=== PATIENT | male | born 1985 | race Caucasian/White ===

== ENCOUNTER → 2020-04-06 08:14 | Outpatient (BNVA) | payer SELFPAY | PROVIDERS: Visit Provider Internal Medicine | DX: Z02.79 Encounter for issue of other medical certificate (principal) ==

== ENCOUNTER 2021-12-05 17:09 | Emergency (ER) | payer OTHER, SELFPAY ==
--- NOTE | ~2021-12-05 | XR_ITS ---
EXAMINATION: XR ABDOMEN KUB CLINICAL INDICATION: Bloating COMPARISON: None TECHNIQUE: AP view of the abdomen. FINDINGS: Small amount of gas in stool within the right and transverse colon. Small amount of gas in the stomach. Otherwise, paucity of of bowel gas. No gas in the region of the rectum. No dilated air-filled bowel loops identified. No appreciable bowel wall thickening No gross large volume free air on this limited supine exam. No acute osseous injury. XR/XR KUB IMPRESSION: 1. Nonspecific bowel gas pattern. No dilated air-filled bowel loops identified.
[2021-12-05 19:01] VITALS: BP 131/93; PULSE 87; RESP 20; TEMP 36.4; O2SAT 98; BMI 31.4
[2021-12-05 20:26] LABS: Glucose, Whole Blood 139 mg/dL (60-115)
[2021-12-05 21:26] LABS: Hematocrit 45.3 % (42.0-52.0); Hemoglobin 15.7 g/dl (14.0-18.0); Mean Corpuscular HGB Conc 34.7 g/dl (31.0-36.0); Mean Corpuscular Hemoglobin 29.9 pg (27.0-33.0); Mean Corpuscular Volume 86.3 fL (80.0-98.0); Mean Platelet Volume 9.2 fL (9.4-12.4); Platelet Count 298 X10*3/uL (160-400); Red Blood Count 5.25 X10*6/uL (4.60-5.80); Red Cell Distribution Width 12.1 % (11.0-16.0); White Blood Count 8.7 X10*3/uL (4.8-10.8)
[2021-12-05 21:48] LABS: Alanine Aminotransferase 45 U/L (0-40); Albumin Level 4.8 g/dL (3.5-5.0); Alkaline Phosphatase 105 U/L (39-117); Anion Gap 17 (12-20); Aspartate Amino Transferase 22 U/L (5-37); Bilirubin Direct 0.2 mg/dL (0.0-0.5); Bilirubin Total 0.6 mg/dL (0.0-1.0); Blood Urea Nitrogen 12 mg/dL (9-16); Carbon Dioxide 25 mmol/L (22-29); Chloride 100 mmol/L (96-108); Creatinine Clr Calc Pharmacy 118.3; Estimated Glomerular Filt Rate > 60; Glucose Random 153 mg/dL (60-115); Lipase 16 U/L (8-78); Potassium 4.2 mmol/L (3.3-5.1); Sodium 138 mmol/L (135-145); Total Protein 8.1 g/dL (6.5-8.0)
--- NOTE | 2021-12-05 23:56 | ED_ITS ---
HPI - Abdominal Pain General Chief Complaint: Abdominal Pain Stated Complaint: Abdominal pain Time Seen by Provider: 12/05/21 23:07 Source: patient Mode of arrival: ambulatory Limitations: no limitations History of Present Illness HPI narrative: Patient is 36 years old diabetic been having left upper abdominal discomfort for last 4- 5 days no nausea no vomiting feels constipated and bloated seen at urgent care center blood sugar 180 sent him here no fever no chills Related Data Previous Rx's Medication Instructions Recorded metformin 500 mg tablet 500 mg PO BID #60 tabs 04/06/20 blood sugar diagnostic (FreeStyle #100 ea 04/14/20 Lite Strips) blood-glucose meter (FreeStyle #1 ea 04/14/20 Lite Meter kit) lancets 28 gauge (FreeStyle #100 ea 04/14/20 Lancets) ibuprofen 600 mg tablet 600 mg PO TID #30 tabs 06/15/20 Allergies Allergy/AdvReac Type Severity Reaction Status Date / Time No Known Allergies Allergy Verified 12/05/21 19:00 Review of Systems Review of Systems Yes all other systems are reviewed and are negative [facility] Past Medical History Medical History Diabetes mellitus with hyperglycemia, without long-term current use of insulin Obesity (BMI 30.0-34.9) Surgical History No pertinent past surgical history Family History Family History Paternal Grandmother Hx of diabetes mellitus Social History Social History Alcohol intake: current Advance Directives: No Advance Directives Information Provided: No Physical Exam ED Vital Signs: Vital Signs - 24 hr 12/05/21 19:01 Temperature 97.5 F Pulse Rate 87 Respiratory Rate 20 Blood Pressure 131/93 H Pulse Oximetry 98 Oxygen Delivery Method Room Air BMI result Body Mass Index 31.4 Appearance: Alert. Oriented X3. No acute distress. Eyes: No pallor or icterus ENT: Pharynx normal. Oral Mucosa moist Neck: Normal inspection. Neck supple. CVS: Normal heart rate and rhythm. Pulses normal. Respiratory: No respiratory distress. Equal air entry bilateral, no wheezing/rales/rhonchi Abdomen: Soft and mild tenderness left upper quadrant no rebound tenderness no guarding Bowel sounds are present, no mass palpable, no CVA tenderness Skin: Skin warm and dry. Normal skin color. Normal skin turgor. Extremities: No lower extremity edema. No calf tenderness Neuro: Oriented X 3. MDM - Abdominal Pain MDM Narrative Medical decision making narrative: Patient does not seem to be in any distress able to eat well no vomiting no acute tenderness likely constipated labs are stable discharge patient home advised to use stool softener drink plenty of fluids Lab Data Attestation: I reviewed the patient's lab results. Result diagrams: 12/05/21 21:20 12/05/21 21:20 Labs: Lab Results 12/05/21 12/05/21 12/05/21 Range/Units 19:07 21:20 21:20 WBC 8.7 (4.8-10.8) X10*3/uL RBC 5.25 (4.60-5.80) X10*6/uL Hgb 15.7 (14.0-18.0) g/dl Hct 45.3 (42.0-52.0) % MCV 86.3 (80.0-98.0) fL MCH 29.9 (27.0-33.0) pg MCHC 34.7 (31.0-36.0) g/dl RDW 12.1 (11.0-16.0) % Plt Count 298 (160-400) X10*3/uL MPV 9.2 L (9.4-12.4) fL Absolute Nucleated RBC 0.000 (0.0-0.012) X10*3/uL Nucleated RBC % (auto) 0.0 (0.0-0.2) /100WBC Sodium 138 (135-145) mmol/L Potassium 4.2 (3.3-5.1) mmol/L Chloride 100 (96-108) mmol/L Carbon Dioxide 25 (22-29) mmol/L Anion Gap 17 (12-20) BUN 12 (9-16) mg/dL Creatinine 0.92 (0.5-1.4) mg/dL Estim Creat Clear Calc 118.3 Estimated GFR > 60 POC Glucose 139 H (60-115) mg/dL Random Glucose 153 H (60-115) mg/dL Calcium 10.0 (8.4-10.2) mg/dL Total Bilirubin 0.6 (0.0-1.0) mg/dL Direct Bilirubin 0.2 (0.0-0.5) mg/dL AST 22 (5-37) U/L ALT 45 H (0-40) U/L Alkaline Phosphatase 105 (39-117) U/L Total Protein 8.1 H (6.5-8.0) g/dL Albumin 4.8 (3.5-5.0) g/dL Lipase 16 (8-78) U/L Discharge Plan Discharge Clinical Impression: Abdominal pain Patient Disposition: Home, Self-Care Instructions: Abdominal Pain (ED) Additional Instructions: You have nonspecific abdominal pain etiology not very clear Drink plenty of fluids Take stool softener for constipation Report to the ER/PCP if pain gets worse fever/vomiting Prescriptions: No Action (DME) FreeStyle Lite Strips Strip See Rx Instructions .ROUTE .MEDSUPPLY Qty: 100 6RF Rx Instructions: Check fasting blood sugar before meals and keep a record of readings (DME) blood-glucose meter [FreeStyle Lite Meter] Kit See Rx Instructions .ROUTE .MEDSUPPLY Qty: 1 0RF Rx Instructions: Check fasting blood sugar twice a day before meals (DME) lancets [FreeStyle Lancets] 28 gauge misc See Rx Instructions .ROUTE .MEDSUPPLY Qty: 100 6RF Rx Instructions: Check blood sugar as directed twice a day metformin 500 mg tablet 500 mg PO BID Qty: 60 3RF ibuprofen 600 mg tablet 600 mg PO TID Qty: 30 0RF
[2021-12-06] MEDS: Milk of Magnesia 30 ML ORAL.SUSP PO (00:44)
--- NOTE | 2021-12-06 00:45 | PC.NURSE ---
Took over pt at 11:15pm from Raulito Mishra. Reviewed discharge instructions with pt. pt verbalized understanding. Medicated at discharge.
--- NOTE | 2021-12-06 00:47 | PC.NURSE ---
pt denied any sob or chest pain. pt able to tolerate medication well. no sign of distress at this charge. pt did have a steady gait.
== END 2021-12-06 00:56 | disposition home or self-care (01) ==
PROVIDERS: Emergency Provider Internal Medicine; PCP Internal Medicine
DX: R10.13 Epigastric pain (principal); Z79.899 Other long term (current) drug therapy
CPT/HCPCS: 36415; 74018; 80053; 82248; 82947; 83690; 85027; 99282; 99284

== ENCOUNTER 2021-12-17 22:22 | Emergency (ER) | payer OTHER, SELFPAY ==
[2021-12-17 22:47] VITALS: BP 161/83; PULSE 92; RESP 18; TEMP 36.6; O2SAT 96; BMI 33.3
[2021-12-17 23:03] LABS: MANUAL DIFF FLAG NO
[2021-12-17 23:04] LABS: Basophils Absolute Auto 0.1 X10*3/uL (0.0-0.2); Basophils Percent Auto 0.8 % (0-2); Eosinophils Absolute Auto 0.3 X10*3/uL (0.0-0.4); Hematocrit 42.1 % (42.0-52.0); Hemoglobin 14.7 g/dl (14.0-18.0); Imm Gran Abs Auto 0.02 X10*3/uL (0.00-0.03); Imm Gran Pct Auto 0.3 % (0.0-0.4); Lymphocytes Absolute Auto 2.7 X10*3/uL (1.2-4.9); Lymphocytes Percent Auto 34.8 % (20-40); Mean Corpuscular HGB Conc 34.9 g/dl (31.0-36.0); Mean Corpuscular Hemoglobin 29.8 pg (27.0-33.0); Mean Corpuscular Volume 85.4 fL (80.0-98.0); Mean Platelet Volume 9.1 fL (9.4-12.4); Monocytes Absolute Auto 0.6 X10*3/uL (0.1-1.2); Monocytes Percent Auto 8.3 % (2-11); Neutrophils Percent Auto 51.8 % (45-73); Platelet Count 307 X10*3/uL (160-400); Red Blood Count 4.93 X10*6/uL (4.60-5.80); Red Cell Distribution Width 11.9 % (11.0-16.0); White Blood Count 7.8 X10*3/uL (4.8-10.8)
[2021-12-17 23:26] LABS: Alanine Aminotransferase 36 U/L (0-40); Albumin Level 4.7 g/dL (3.5-5.0); Alkaline Phosphatase 91 U/L (39-117); Anion Gap 17 (12-20); Aspartate Amino Transferase 18 U/L (5-37); Bilirubin Total 0.6 mg/dL (0.0-1.0); Blood Urea Nitrogen 12 mg/dL (9-16); Calcium 9.5 mg/dL (8.4-10.2); Carbon Dioxide 24 mmol/L (22-29); Chloride 102 mmol/L (96-108); Creatinine Clr Calc Pharmacy 117.8; Estimated Glomerular Filt Rate > 60; Glucose Random 150 mg/dL (60-115); Lipase 21 U/L (8-78); Potassium 3.9 mmol/L (3.3-5.1); Sodium 139 mmol/L (135-145); Total Protein 7.7 g/dL (6.5-8.0)
[2021-12-18 02:50] VITALS: BP 142/92; PULSE 78; RESP 14; TEMP 36.8; O2SAT 98
--- NOTE | 2021-12-18 02:55 | PC.NURSE ---
Pt declines IV insertion at this time.
--- NOTE | 2021-12-18 04:43 | ED_ITS ---
HPI - Abdominal Pain General Chief Complaint: Abdominal Pain Stated Complaint: upper abd pain Time Seen by Provider: 12/18/21 04:08 Source: patient Mode of arrival: ambulatory Limitations: no limitations History of Present Illness HPI narrative: Patient comes to the emergency room complaining epigastric burning sensation intermittently for over 2 weeks. Patient has been seen in the emergency room for similar complaints. Patient states that he is taking omeprazole and still occasionally has a lot of abdominal discomfort, mostly consistent of burping a lot. At this time, patient states that he has no abdominal pain. Patient denies chest pain or shortness of breath. Patient states also that sometimes he feels that his abdominal wall muscles twitch, especially if he is sitting for a prolonged period of time. Denies nausea vomiting or diarrhea. No fever or chills. No URI or UTI symptoms. Related Data Previous Rx's Medication Instructions Recorded blood sugar diagnostic (FreeStyle #100 ea 04/14/20 Lite Strips) blood-glucose meter (FreeStyle #1 ea 04/14/20 Lite Meter kit) lancets 28 gauge (FreeStyle #100 ea 04/14/20 Lancets) ibuprofen 600 mg tablet 600 mg PO TID #30 tabs 06/15/20 metformin 500 mg tablet 500 mg PO BID #60 tabs 12/07/21 omeprazole 20 mg capsule,delayed 20 mg PO DAILY #14 caps 12/13/21 release sucralfate 1 gram tablet 1 g PO BID #60 tabs 12/18/21 Allergies Allergy/AdvReac Type Severity Reaction Status Date / Time No Known Allergies Allergy Verified 12/13/21 11:33 Review of Systems Review of Systems Constitutional : No Weight loss, No Fever, No Chills, No Night Sweats, No Fatigu e, No Malaise ENT/Mouth : No Hearing loss, No Ear Pain, No Nasal Congestion, No Sinus Pain, No Hoarseness, No sore throat, No Rhinorrhea, No Swallowing Difficulty Eyes: No Eye Pain, No Swelling, No Redness, No Foreign Body, No Discharge, No Vision Changes Cardiovascular : No Chest Pain, No SOB, No Dyspnea on Exertion, No Orthopnea, No Edema, No Palpitations Respiratory : No Cough, No Sputum, No Wheezing, No Smoke Exposure, No Dyspnea Gastrointestinal : No Nausea, No Vomiting, No Diarrhea, No Constipation, complaining of abdominal wall muscle twitching, frequent burping, abdominal burning sensation after eating Genitourinary : no irregular bleeding, No Dysuria, No Urinary Frequency, No Hematuria, No Urinary Incontinence, No Urgency, No Flank Pain, No Urinary Flow Changes, No Hesitancy Musculoskeletal : No joint pain, No Myalgias, No Joint Swelling Skin : No Skin Lesions, No rash Neuro : No Weakness, No Numbness, No Paresthesias, No Loss of Consciousness, No Dizziness, No Headache Psych : No Anxiety/Panic, No Depression, No SI/HI/AH/VH, No Social Issues, Heme/Lymph: No Bruising, No Bleeding,No Lymphadenopathy Endocrine : No Polyuria, No Polydipsia, No Temperature Intolerance PMF Past Medical History Medical History Diabetes mellitus with hyperglycemia, without long-term current use of insulin Obesity (BMI 30.0-34.9) Surgical History No pertinent past surgical history Family History Family History Paternal Grandmother Hx of diabetes mellitus Social History Social History Alcohol intake: current Alcohol intake frequency: holidays/special occasions only Smoked in Last 30 Days: No Use of substances other than those prescribed or required for medical reasons: No Advance Directives: No Advance Directives Information Provided: No Physical Exam ED Vital Signs: Vital Signs - 24 hr 12/17/21 22:47 12/18/21 02:50 Temperature 97.8 F 98.3 F Pulse Rate 92 78 Respiratory Rate 18 14 Blood Pressure 161/83 H 142/92 H Pulse Oximetry 96 98 Oxygen Delivery Method Room Air Room Air BMI result Body Mass Index 33.3 Const Other: Appearance: Alert. Oriented X3. No acute distress. Well appearing Eyes: Pupils equal, round and reactive to light. ENT: Pharynx normal. Neck: Normal inspection. Neck supple. No lymph nodes noted. No crepitus CVS: Normal heart rate and rhythm. Pulses normal. Normal S1 and S2 Respiratory: No respiratory distress. Breath sounds normal. No Wheezing. No rales Abdomen: Soft and nontender. No rigidity. No distention. Skin: Skin warm and dry. Normal skin color. Normal skin turgor. Extremities: No lower extremity edema. No Lacerations. No Rash Neuro: Oriented X 3. No motor deficit. No sensory deficit. Moving all extremities. No slurred speech. CN 2 through 12 grossly intact Psych: calm, cooperative, normal affect Course Course Course Narrative: I discussed with the patient that he likely has peptic ulcer disease. At this time, patient is asymptomatic. Patient will be started on sucralfate. Patient has already an appointment pending with Gastroenterology in 2 weeks. Patient's abdomen is soft, nondistended, nontender, this time imaging is not indicated. Patient's labs do not show any acute pathology I discussed with the patient that if his symptoms do not improve, he will likely need an upper endoscopy MDM - Abdominal Pain Lab Data Result diagrams: 12/17/21 22:55 12/17/21 22:55 Labs: Lab Results 12/17/21 12/17/21 Range/Units 22:55 22:55 WBC 7.8 (4.8-10.8) X10*3/uL RBC 4.93 (4.60-5.80) X10*6/uL Hgb 14.7 (14.0-18.0) g/dl Hct 42.1 (42.0-52.0) % MCV 85.4 (80.0-98.0) fL MCH 29.8 (27.0-33.0) pg MCHC 34.9 (31.0-36.0) g/dl RDW 11.9 (11.0-16.0) % Plt Count 307 (160-400) X10*3/uL MPV 9.1 L (9.4-12.4) fL Immature Gran % (Auto) 0.3 (0.0-0.4) % Neut % (Auto) 51.8 (45-73) % Lymph % (Auto) 34.8 (20-40) % [place] % (Auto) 8.3 (2-11) % Eos % (Auto) 4.0 (0-4) % Baso % (Auto) 0.8 (0-2) % Lymph # (Auto) 2.7 (1.2-4.9) X10*3/uL [place] # (Auto) 0.6 (0.1-1.2) X10*3/uL Eos # (Auto) 0.3 (0.0-0.4) X10*3/uL Baso # (Auto) 0.1 (0.0-0.2) X10*3/uL Abs Immat Gran (auto) 0.02 (0.00-0.03) X10*3/uL Absolute Neuts (auto) 4.0 (2.0-8.3) x10*3/uL Absolute Nucleated RBC 0.000 (0.0-0.012) X10*3/uL Nucleated RBC % (auto) 0.0 (0.0-0.2) /100WBC Sodium 139 (135-145) mmol/L Potassium 3.9 (3.3-5.1) mmol/L Chloride 102 (96-108) mmol/L Carbon Dioxide 24 (22-29) mmol/L Anion Gap 17 (12-20) BUN 12 (9-16) mg/dL Creatinine 0.92 (0.5-1.4) mg/dL Estim Creat Clear Calc 117.8 Estimated GFR > 60 Random Glucose 150 H (60-115) mg/dL Calcium 9.5 (8.4-10.2) mg/dL Total Bilirubin 0.6 (0.0-1.0) mg/dL AST 18 (5-37) U/L ALT 36 (0-40) U/L Alkaline Phosphatase 91 (39-117) U/L Total Protein 7.7 (6.5-8.0) g/dL Albumin 4.7 (3.5-5.0) g/dL Lipase 21 (8-78) U/L Discharge Plan Discharge Clinical Impression: Peptic ulcer disease Patient Disposition: Home, Self-Care Instructions: Peptic Ulcer (ED), Diet for Stomach Ulcers and Gastritis (ED) Additional Instructions: Please follow-up with your primary care physician tomorrow. If you have any worsening or new symptoms, please return to the emergency room or call 911 Prescriptions: New sucralfate 1 gram tablet 1 g PO BID Qty: 60 0RF No Action (DME) FreeStyle Lite Strips Strip See Rx Instructions .ROUTE .MEDSUPPLY Qty: 100 6RF Rx Instructions: Check fasting blood sugar before meals and keep a record of readings (DME) blood-glucose meter [FreeStyle Lite Meter] Kit See Rx Instructions .ROUTE .MEDSUPPLY Qty: 1 0RF Rx Instructions: Check fasting blood sugar twice a day before meals (DME) lancets [FreeStyle Lancets] 28 gauge misc See Rx Instructions .ROUTE .MEDSUPPLY Qty: 100 6RF Rx Instructions: Check blood sugar as directed twice a day ibuprofen 600 mg tablet 600 mg PO TID Qty: 30 0RF metformin 500 mg tablet 500 mg PO BID Qty: 60 0RF omeprazole 20 mg capsule,delayed release(DR/EC) 20 mg PO DAILY Qty: 14 0RF
[2021-12-18] MEDS: Lidocaine HCl Viscous 2 % 15 ML SOLUTION MUCOUS MEM (04:57)
[2021-12-18] MEDS: Magnesium Hydrox/Alum Hydrox 30 ML ORAL.SUSP PO (04:57)
== END 2021-12-18 05:06 | disposition home or self-care (01) ==
PROVIDERS: Emergency Provider Emergency Medicine
DX: K27.9 Peptic ulcer, site unspecified, unspecified as acute or chronic, without hemorrhage or perforation (principal); E11.9 Type 2 diabetes mellitus without complications; E66.9 Obesity, unspecified; Z68.33 Body mass index [BMI] 33.0-33.9, adult; Z79.84 Long term (current) use of oral hypoglycemic drugs
CPT/HCPCS: 36415; 80053; 83690; 85025; 99283; 99284

== ENCOUNTER 2021-12-27 09:15 | Outpatient (REF) | payer OTHER, SELFPAY ==
[2021-12-27 11:29] LABS: MANUAL DIFF FLAG NO
[2021-12-27 11:41] LABS: Basophils Percent Auto 0.6 % (0-2); Eosinophils Absolute Auto 0.4 X10*3/uL (0.0-0.4); Eosinophils Percent Auto 5.3 % (0-4); Hematocrit 44.5 % (42.0-52.0); Hemoglobin 15.1 g/dl (14.0-18.0); Imm Gran Abs Auto 0.02 X10*3/uL (0.00-0.03); Imm Gran Pct Auto 0.3 % (0.0-0.4); Lymphocytes Absolute Auto 2.7 X10*3/uL (1.2-4.9); Lymphocytes Percent Auto 38.5 % (20-40); Mean Corpuscular HGB Conc 33.9 g/dl (31.0-36.0); Mean Corpuscular Hemoglobin 29.7 pg (27.0-33.0); Mean Corpuscular Volume 87.6 fL (80.0-98.0); Mean Platelet Volume 9.8 fL (9.4-12.4); Monocytes Absolute Auto 0.7 X10*3/uL (0.1-1.2); Monocytes Percent Auto 9.9 % (2-11); Neutrophils Absolute Auto 3.2 x10*3/uL (2.0-8.3); Neutrophils Percent Auto 45.4 % (45-73); Platelet Count 315 X10*3/uL (160-400); Red Blood Count 5.08 X10*6/uL (4.60-5.80); Red Cell Distribution Width 12.2 % (11.0-16.0)
[2021-12-27 12:29] LABS: Alanine Aminotransferase 84 U/L (0-40); Albumin Level 4.6 g/dL (3.5-5.0); Alkaline Phosphatase 94 U/L (39-117); Anion Gap 16 (12-20); Aspartate Amino Transferase 31 U/L (5-37); Bilirubin Total 0.6 mg/dL (0.0-1.0); Blood Urea Nitrogen 16 mg/dL (9-16); Calcium 9.8 mg/dL (8.4-10.2); Carbon Dioxide 24 mmol/L (22-29); Chloride 103 mmol/L (96-108); Cholesterol 215 mg/dL; Estimated Glomerular Filt Rate > 60; Glucose Fasting 154 mg/dL (60-99); HDL Cholesterol 45 mg/dL; LDL Cholesterol Calculated 135 mg/dl; Potassium 4.1 mmol/L (3.3-5.1); Sodium 139 mmol/L (135-145); Total Protein 7.7 g/dL (6.5-8.0); Triglycerides 176 mg/dL
[2021-12-27 12:52] LABS: Creatinine Urine 234.43 mg/dL; Microalbum/Creatinine Ratio Ur 4.6 ug/mg cr
== END 2021-12-27 09:16 | disposition home or self-care (01) ==
LOC: HO.HMGCLDS 09:15
PROVIDERS: PCP Internal Medicine; Visit Provider Internal Medicine
DX: R10.11 Right upper quadrant pain (principal); E11.65 Type 2 diabetes mellitus with hyperglycemia; R11.0 Nausea; R63.0 Anorexia
CPT/HCPCS: 36415; 80053; 80061; 82043; 85025; J2250

== ENCOUNTER 2021-12-27 11:00 | Outpatient (REF) | payer OTHER, SELFPAY ==
--- NOTE | ~2021-12-27 | US_ITS ---
EXAMINATION: US ABDOMEN COMPLETE CLINICAL INFORMATION: Right upper quadrant pain. COMPARISON: KUB dated 12/05/2021. TECHNIQUE: Real-time imaging of the abdominal viscera. FINDINGS: PANCREAS: Normal. ABDOMINAL AORTA: The visualized proximal, mid, and distal segments are normal in caliber. Imaging of the mid segment is somewhat limited. INFERIOR VENA CAVA: Visualized portions are normal. LIVER: The liver is normal in size. The liver contour is normal. There is diffuse increased liver parenchymal echogenicity. No focal hepatic lesion. There is no intrahepatic biliary duct dilatation seen. GALLBLADDER: Normal. The gallbladder is physiologically distended without evidence of stones, sludge, polyps, wall thickening or pericholecystic fluid. COMMON BILE DUCT: Normal in caliber measuring 0.4 cm in diameter. RIGHT KIDNEY: Normal. No hydronephrosis. No renal calculi or focal parenchymal lesions. The kidney measures 10.8 cm in maximum dimension. LEFT KIDNEY: Normal. No hydronephrosis. No renal calculi or focal parenchymal lesions. The kidney measures 10.8 cm in maximum dimension. SPLEEN: Normal. The spleen measures 11.1 cm in maximum dimension. FREE FLUID: None. US/US abdomen complete IMPRESSION: Unremarkable examination.
== END 2021-12-27 11:01 | disposition home or self-care (01) ==
LOC: HO.HMGCX 11:00
PROVIDERS: PCP Internal Medicine; Visit Provider Internal Medicine
DX: R10.11 Right upper quadrant pain (principal); E11.65 Type 2 diabetes mellitus with hyperglycemia; R11.0 Nausea; R63.0 Anorexia
CPT/HCPCS: 76700

== ENCOUNTER 2022-01-12 15:40 | Outpatient (REF) | payer OTHER, SELFPAY ==
[2022-01-12 17:06] LABS: Gamma Glutamyl Transpeptidase 51 U/L (11-51)
[2022-01-14 12:48] LABS: Transglutaminase Ab IgG <1.0 U/mL; Transglutaminase IgA <1.0 U/mL
== END 2022-01-12 15:41 | disposition home or self-care (01) ==
LOC: HO.LAB 15:40
PROVIDERS: PCP Internal Medicine; Visit Provider Nurse Practitioner Family
DX: R74.8 Abnormal levels of other serum enzymes (principal); R10.9 Unspecified abdominal pain; K21.9 Gastro-esophageal reflux disease without esophagitis
CPT/HCPCS: 36415; 82977; 86364

== ENCOUNTER 2022-01-13 08:31 | Outpatient (AMB) | payer OTHER, SELFPAY ==
[2022-01-13 08:35] VITALS: BP 102/70; PULSE 95; O2SAT 98; BMI 32.5
--- NOTE | 2022-01-13 08:35 | MHC.PC.OV ---
Vital Signs 01/13/22 08:35 Height 5 ft 6 in Weight 202 lb BMI 32.5 BP 102/70 Blood Pressure Location Lt brachial Position Sitting Pulse 95 Pulse Source Pulse Oximeter Pulse Oximetry (%) 98 Oxygen Delivery Method Room Air Intake Visit Reasons: wants to discuss paperwork Intake Note: Pt is here today to discuss FMLA paperwork Allergies No Known Allergies Allergy (Verified 01/13/22 08:37) Tobacco use date assessed: 01/13/22 [facility] Medical History Diabetes mellitus with hyperglycemia, without long-term current use of insulin Obesity (BMI 30.0-34.9) Right upper quadrant abdominal pain Surgical History No pertinent past surgical history Family History Paternal Grandmother Hx of diabetes mellitus Social History Housing: House Alcohol intake: current Alcohol intake frequency: holidays/special occasions only Patient Tobacco Use Status: Former Tobacco user e-Cigarette/Vaping Use: Never Used Current occupational status: employed Cognitive needs: No Hearing needs: No Vision needs: No Physical exam (Primary Care) Vital Signs: Last Vital Signs Pulse 95 01/13/22 08:35 BP 102/70 01/13/22 08:35 Pulse Ox 98 01/13/22 08:35 Oxygen Delivery Method Room Air 01/13/22 08:35 BMI result Body Mass Index 32.5 Tobacco/Smoking Status: Tobacco use Status Tobacco use date assessed 01/13/22 01/13/22 08:37 Patient Tobacco Use Status Former Tobacco user 01/13/22 08:37 e-Cigarette/Vaping Use Never Used 01/13/22 08:37 Office Procedures Flu Questionnaire Does the patient have a severe egg allergy?: No Does the patient have severe life threatening allergies?: No Does the patient have a fever or illness today?: No Has the patient ever had Guillain-[place] Syndrome?: No Has the patient ever had any past reaction to a flu shot?: No Immunizations flu vacc [id number] 6mos up(PF) Performing Provider: Leora Christopher MD Administered by: Naomy Allison CMA on 01/13/22 09:50 Dose Route Admin Location Lot Number Expiration Date NDC Odd Piece Checker 0.5 mL IM Right Deltoid [id number] 08/12/22 [id number] USDS VIS Given Date VIS Provided VIS Publication Date 01/13/22 Single Vaccine 20 Eligibility Eligibility Date Funding Source Not [facility] Eligible 01/13/22 Private Assessment and Plan Assessment & Plan Orders: Orders Influenza [id number] Immunization Today Z23 - Encounter for immunization Coding Level of Care Code Est Pt Level 4 (43255)
== END 2022-01-13 13:36 | disposition home or self-care (01) ==
LOC: HO.HMGC 08:31
PROVIDERS: PCP Internal Medicine; Visit Provider Internal Medicine
DX: Z00.00 Encounter for general adult medical examination without abnormal findings (principal)
CPT/HCPCS: 99499

== ENCOUNTER 2022-02-22 13:45 | Outpatient (REF) | payer OTHER, SELFPAY ==
[2022-03-02 18:13] LABS: Pancreatic Elastase-1 >500 mcg/g
== END 2022-02-22 13:46 | disposition home or self-care (01) ==
LOC: HO.LNP 13:45
PROVIDERS: Visit Provider Nurse Practitioner Family
DX: R10.9 Unspecified abdominal pain (principal); K21.9 Gastro-esophageal reflux disease without esophagitis
CPT/HCPCS: 82656; 87338

== ENCOUNTER 2022-03-03 08:57 | Outpatient (REF) | payer OTHER, SELFPAY ==
--- NOTE | ~2022-03-03 | FL_ITS ---
EXAMINATION: FL UPPER GI SERIES CLINICAL INFORMATION: K21.9 - Gastro-esophageal reflux disease without esophagitis COMPARISON: Abdominal ultrasound 12/27/2021, KUB 12/05/2021 TECHNIQUE: Upper GI series is performed using fluoroscopic evaluation in addition to multiple fluoroscopic spot views. The patient is imaged both upright and prone and using both thick and thin barium sulfate along with effervescent granules. Barium pill challenge also performed. Fluoroscopy time: 1.7 minutes DAP: 26.024 Gycm2 Fluoroscopic spot images: 19 FINDINGS: There is normal esophageal motility. There is no obstruction, stricture, or ulceration. Barium pill passed from mouth to stomach without significant delay. There is intermittent small sliding hiatal hernia. Gastroesophageal reflux is demonstrated during water siphon test to mid thoracic esophagus. The stomach shows no thickened folds or ulcer crater or outlet obstruction. The duodenal bulb is pliable and without ulcer crater or scarring. The post bulbar duodenum the jejunal mucosal pattern are unremarkable. FL/FL upper GI w air IMPRESSION: -Small intermittent sliding hiatal hernia. -Gastroesophageal reflux during water siphon test to mid thoracic esophagus. -No ulceration. No stricture.
== END 2022-03-03 08:58 | disposition home or self-care (01) ==
LOC: HO.XRAY 08:57
PROVIDERS: PCP Internal Medicine; Visit Provider Nurse Practitioner Family
DX: K21.9 Gastro-esophageal reflux disease without esophagitis (principal)
CPT/HCPCS: 74246

== ENCOUNTER 2022-03-04 11:09 | Outpatient (AMB) | payer OTHER, SELFPAY ==
--- NOTE | 2022-03-04 11:16 | MHC.PC.OV ---
Vital Signs 03/04/22 11:18 Height 5 ft 6 in Weight 203 lb 2 oz BMI 32.8 BP 120/70 Blood Pressure Location Rt brachial Position Sitting Pulse 80 Pulse Source Pulse Oximeter Pulse Oximetry (%) 98 Oxygen Delivery Method Room Air Intake Visit Reasons: paperwork Allergies No Known Allergies Allergy (Verified 04/03/23 08:34) Medication List - Last Reconciled 03/04/22 by Leora Christopher MD blood sugar diagnostic (FreeStyle Lite Strips) Check fasting blood sugar before meals and keep a record of readings blood-glucose meter (FreeStyle Lite Meter kit) Check fasting blood sugar twice a day before meals lancets (FreeStyle Lancets) Check blood sugar as directed twice a day metformin 500 mg PO BID omeprazole 40 mg PO DAILY Tobacco use date assessed: 03/04/22 HPI paperwork HPI Details 38-year-old male with type 2 diabetes mellitus, obesity, history of dyslipidemia, here today requesting to have his disability forms needed for his insurance completed. 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 He had an upper GI series done recently which showed presence of a small sliding hiatal hernia and gastroesophageal reflux disease up to mid thoracic esophagus area. He has been seen by the Gastroenterology, and placed on omeprazole 40 mg daily which has been helping. Expected return to work is on 03/09/2022. He is also here for follow-up on his diabetes mellitus and hyperlipidemia, overdue to get repeat labs done. States that he has been trying to adhere to recommended diet, and has started going to the gym for exercise. He however has not been checking his blood sugar at home. [facility] Medical History Dyslipidemia Erectile dysfunction Sliding hiatal hernia GERD without esophagitis Right upper quadrant abdominal pain Obesity (BMI 30.0-34.9) Diabetes mellitus with hyperglycemia, without long-term current use of insulin Surgical History No pertinent past surgical history Family History Paternal Grandmother Hx of diabetes mellitus Social History Housing: House Alcohol intake: current Alcohol intake frequency: holidays/special occasions only Patient Tobacco Use Status: Former Tobacco user e-Cigarette/Vaping Use: Never Used Current occupational status: employed Cognitive needs: No Hearing needs: No Vision needs: No Questionnaire PHQ-9 Over the last 2 weeks, how often have you been bothered by any of the following problems? 1. Little interest or pleasure in doing things: not at all 2. Feeling down, depressed, or hopeless: not at all 3. Trouble falling or staying asleep, or sleeping too much: not at all 4. Feeling tired or having little energy: not at all 5. Poor appetite or overeating: not at all 6. Feeling bad about yourself - or that you are a failure or have let yourself or your family down: not at all 7. Trouble concentrating on things, such as reading the newspaper or watching television: not at all 8. Moving or speaking so slowly that other people could have noticed. Or the opposite - being so fidgety or restless that you have been moving around a lot more than usual: not at all 9. Thoughts that you would be better off or of hurting yourself in some way: not at all Total score: 0 Depression Screening Interpretation: Negative 25975 - PHQ-9 Billing: Yes Source: Developed by Drs. Michael Weller, Alicia Robledo, Inocencio Aaron and colleagues, with an educational griselda from [employer]. Thrive Questionnaire Declines Thrive assessment: No Date Thrive assessed: 03/04/22 I am a: Patient What is your living situation today?: I have a steady place to live Within the past 12 months, did the food you bought not last and you didn't have the money to get more?: Never true Within the past 12 months, did you worry whether your food would run out before you got money to buy more?: Never true Do you have trouble paying for medicines?: No Do you have trouble getting transportation to medical appointments?: No Do you have trouble paying your heating and electricity bill?: No Do you have trouble taking care of your child, family member or friend?: No Do you have trouble with day-to-day activities such as bathing, preparing meals, shopping, managing finances, etc.?: No Are you currently unemployed and looking for a job?: No Are you interested in more education?: No AUDIT C Alcohol Use Questionnaire (AUDIT-C) 1. How often do you have a drink containing alcohol?: Never 3. How often do you have six or more drinks on one occasion?: Never Total Score: 0 HARRISON-7 AMB Questionnaire HARRISON-7 Date HARRISON - 7 assessed: 03/04/22 Feeling nervous, anxious, or on edge: 0 = Not at all Not being able to stop or control worryin = Not at all Worrying too much about different things: 0 = Not at all Trouble relaxin = Not at all Being so restless that it is hard to sit still: 0 = Not at all Becoming easily annoyed or irritable: 0 = Not at all Feeling afraid as if something awful might happen: 0 = Not at all Total HARRISON-7 score (0-4 normal; 5-9 mild; 10-14 moderate; 15-21 severe): 0 Source: Developed by Drs. Michael Weller, Alicia Robledo, Inocencio Aaron and colleagues, with an educational griselda from [employer]. HARRISON-7 Assessment Billing HARRISON-7 Assessment Tool: HARRISON-7 Assessment 51264 Review of Systems Const Denies fatigue, Denies fever(s), Denies weight gain and Denies weight loss ENT Reports no additional complaints, Denies dysphagia and Denies odynophagia Card Denies chest pain, Denies rapid heart rate, Denies irregular heart rhythm and Denies lightheadedness Resp Reports no additional complaints GI Reports abdominal pain (epigastric an occasional right upper quadrant pain), Denies belching, Denies melena, Denies bloating, Denies change in bowel habits, Denies dysphagia, Denies excessive flatus, Reports heartburn, Reports nausea, Denies odynophagia and Denies vomiting Reports no additional complaints Musc Reports no additional complaints Skin/Breast Denies lesions and Denies rash Neuro Reports no additional complaints Psych Reports no additional complaints Endo Reports no additional complaints and Denies fatigue Lew/Lymph Denies easy bleeding and Denies easy bruising Physical exam (Primary Care) Vital Signs: Last Vital Signs Pulse 80 03/04/22 11:18 BP 120/70 03/04/22 11:18 Pulse Ox 98 03/04/22 11:18 Oxygen Delivery Method Room Air 03/04/22 11:18 BMI result Body Mass Index 32.8 Tobacco/Smoking Status: Tobacco use Status Tobacco use date assessed 03/04/22 03/04/22 11:21 Patient Tobacco Use Status Former Tobacco user 03/04/22 11:21 e-Cigarette/Vaping Use Never Used 03/04/22 11:21 PHQ-9: PHQ-9 Score PHQ-9: Total score 0 03/04/22 12:07 Depression Screening Interpretation: Negative Thrive Assessment: Date of Thrive Assessment Date Thrive assessed 03/04/22 03/04/22 11:23 Const Nutritional Appearance: obese Orientation/consciousness: patient oriented x3 HENMT Mouth: Normal oral and palatal mucosa present, oropharynx normal and moist mucous membranes Neck Other: Supple, no lymphadenopathy, thyroid gland nonpalpable Resp Auscultation: clear to auscultation bilaterally Cardio Other: S1-S2 present regular rate and rhythm GI Inspection: Yes obesity Palpation (GI): Soft to palpation, Tenderness to palpation present (GI) in the epigastrum, no guarding, not rigid, no masses and No Rebound tenderness present General: Yes no CVA tenderness Back/Spine/Pelvis Back: no CVA tenderness and No back tenderness Skin General skin exam: no rashes or lesions noted Neuro General: patient oriented x3, gait normal, tone normal, moves all extremities, Normal light touch and pain sensation, no focal motor deficits, CN's II-XI intact bilaterally and normal sensation to monofilament Extrem General: Yes full ROM, Yes no joint enlargement, Yes no clubbing, cyanosis or edema, Yes no pedal edema and Yes normal gait Immunizations pneumoc 20-antoine conj-dip cr(PF) 0.5 mL IM syringe Performing Provider: Leora Christopher MD Performing Location: [facility] Administered by: Marilee Mercedes RN on 03/04/22 12:07 Dose Route Admin Location Dispensed Lot Number Expiration Date NDC [employer]er 0.5 mL IM Left Deltoid 0.5 mL [id number] 05/15/23 7554-6017-89 [employer] VIS Given Date VIS Provided VIS Publication Date 03/04/22 Single Vaccine 21 Eligibility Eligibility Date Funding Source Not VF Eligible 03/04/22 Private Results Reviewed Results Reviewed: Laboratory Tests 01/12/22 02/22/22 02/22/22 15:52 11:35 11:35 GGT 51 Stool Pancreat Elastase >500 Stool H. pylori Ag SEE NOTE PEC : [id number] JESSE: 12/27/21 STATUS: COMP REQ : [id number] RECD: 12/27/[address]: Leora Christopher MD COMP: 12/27/21 ENTERED: 12/27/[address] [facility] [address]: ORDERED: CMP Fast, Lipid Panel Test Result Flag Reference Sodium 139 135-145 mmol/L Potassium 4.1 3.3-5.1 mmol/L CL 103 96-108 mmol/L CO2 24 22-29 mmol/L Gap 16 12-20 BUN 16 9-16 mg/dL Creat 1.05 0.5-1.4 mg/dL EGFR > 60 NOTE: For -Luxembour[place] individuals, multiply the result by 1.210. Chronic Kidney Disease: Estimated GFR < 60 mL/min/1.73m2 Severe Kidney Disease: Estimated GFR < 15 mL/min/1.73m2 FBS 154 H 60-99 mg/dL A fasting glucose of 126 mg/dl or greater on more than one occasion is considered diagnostic of diabetes. CA 9.8 8.4-10.2 mg/dL Total Bili 0.6 0.0-1.0 mg/dL AST (GOT) 31 # 5-37 U/L ALT (GPT) 84 H 0-40 U/L Protein, Total 7.7 6.5-8.0 g/dL Alb 4.6 3.5-5.0 g/dL Triglyceride 176 mg/dL Desirable Triglyceride: less than 150 mg/dL Borderline High Triglyceride 150-199 mg/dL High Triglyceride: 200-499 mg/dL Very High Triglyceride: greater than or equal to 5OO mg/dL Chol 215 mg/dL Desirable Cholesterol: less than 200 mg/dL Borderline High Cholesterol: 200-239 mg/dL High Cholesterol: greater than 239 mg/dL LDL Calculated 135 mg/dl Desirable LDL: less than 100 mg/dL Near Optimal/Above Optimal LDL: 110-129 mg/dL Borderline High LDL: 130-159 mg/dL High LDL: 160-189 mg/dL Very High LDL: greater than or equal to 190 mg/dL HDL 45 mg/dL Desirable HDL: greater than 40 mg/dL Note: This HDL assay may give artificially low results in patients with liver disease. Alk Phos 94 39-117 U/L Assessment and Plan Assessment & Plan (1) GERD without esophagitis: Code(s): K21.9 - Gastro-esophageal reflux disease without esophagitis Plan: Results of upper GI series reviewed with patient which showed presence of small hiatal hernia and GERD. Discussed with patient changing his diet. Avoiding food that is fried or processed. Disability form for insurance completed and given to patient (2) Sliding hiatal hernia: Code(s): K44.9 - Diaphragmatic hernia without obstruction or gangrene Plan: Discussed changing his diet, avoiding foods that are too acidic, fried or highly processed, avoid bedtime snacking, remain upright for at least 3 hours after eating, and avoid wearing anything to tight around waist (3) Dyslipidemia: Code(s): E78.5 - Hyperlipidemia, unspecified Plan: Reviewed last fasting lipid panel done 2 months ago which showed elevated triglycerides and LDL cholesterol, goal LDL is less than 100 mg/dL. Statin recommended but patient declined starting it at present time due to current GI complaints. Reinforced importance of following a low-cholesterol diet, getting regular exercise. Repeat fasting lipid panel liver enzymes ordered (4) Diabetes mellitus with hyperglycemia, without long-term current use of insulin: Code(s): E11.65 - Type 2 diabetes mellitus with hyperglycemia Plan: Ordered hemoglobin A1c and basic metabolic panel. Currently on metformin 500 mg taken 1 tablet twice a day. Reinforced importance of following diabetic diet and getting regular exercise. Reminded to get his diabetes retinopathy screening done yearly, pneumococcal vaccination given today Orders: Orders Lipid Panel 03/21/22 E66.9 - Obesity, unspecified, E11.65 - Type 2 diabetes mellitus with hyperglycemia Hemoglobin A1c 03/21/22 E66.9 - Obesity, unspecified, E11.65 - Type 2 diabetes mellitus with hyperglycemia Aspartate Amino Transferase 03/21/22 E66.9 - Obesity, unspecified, E11.65 - Type 2 diabetes mellitus with hyperglycemia Basic Metabolic Panel Fasting 03/21/22 E66.9 - Obesity, unspecified, E11.65 - Type 2 diabetes mellitus with hyperglycemia Pneumococcal 20 Immunization 03/04/22 Z23 - Encounter for immunization Alanine Aminotransferase 03/21/22 E66.9 - Obesity, unspecified, E11.65 - Type 2 diabetes mellitus with hyperglycemia Coding Level of Care Code Est Pt Level 4 (12504) Diagnoses GERD without esophagitis K21.9 Sliding hiatal hernia K44.9 Dyslipidemia E78.5 Diabetes mellitus with hyperglycemia, without long-term current use of insulin E11.65 Additional Codes HARRISON-7 Assessment Billing - HARRISON-7 Assessment Tool: HARRISON-7 Assessment 27006 ([id number])
[2022-03-04 11:18] VITALS: BP 120/70; PULSE 80; O2SAT 98; BMI 32.8
== END 2022-03-04 12:20 | disposition home or self-care (01) ==
LOC: HO.HMGC 11:10
PROVIDERS: PCP Internal Medicine; Visit Provider Internal Medicine
DX: K21.9 Gastro-esophageal reflux disease without esophagitis (principal); K44.9 Diaphragmatic hernia without obstruction or gangrene; E78.5 Hyperlipidemia, unspecified; E11.65 Type 2 diabetes mellitus with hyperglycemia
CPT/HCPCS: 99499

== ENCOUNTER → 2022-03-09 13:20 | Outpatient (BNVA) | payer OTHER, SELFPAY | PROVIDERS: PCP Internal Medicine; Referring Provider Internal Medicine; Visit Provider Nurse Practitioner Family | DX: Z13.89 Encounter for screening for other disorder (principal) ==

== ENCOUNTER 2022-04-11 14:37 | Outpatient (AMB) | payer OTHER, SELFPAY ==
--- NOTE | 2022-04-11 14:34 | A.OFFPC_ITS ---
Intake Visit Reasons: FMLA Form/ Iphone [phone] Allergies No Known Allergies Allergy (Verified 09/14/22 14:54) Medication List - Last Reconciled 04/11/22 by Leora Christopher MD blood sugar diagnostic (FreeStyle Lite Strips) Check fasting blood sugar before meals and keep a record of readings blood-glucose meter (FreeStyle Lite Meter kit) Check fasting blood sugar twice a day before meals lancets (FreeStyle Lancets) Check blood sugar as directed twice a day metformin 500 mg PO BID omeprazole 40 mg PO DAILY sucralfate 1 g PO BEDTIME Tobacco use date assessed: 04/11/22 HPI FMLA Form/ Iphone [phone] HPI Details 37-year-old male, here today for nick cisneros in completing an application for his FMLA. He has been having recurrent epigastric pain accompanied by bloating and nausea, he was diagnosed to have a sliding hiatal hernia and GERD on a recent upper endoscopy Patient is currently on omeprazole 40 mg daily, but still gets through breakthrough episodes at times. Has an upcoming appointment with GI again in June 2022. [facility] Medical History Diabetes mellitus with hyperglycemia, without long-term current use of insulin Dyslipidemia Erectile dysfunction GERD without esophagitis Obesity (BMI 30.0-34.9) Right upper quadrant abdominal pain Sliding hiatal hernia Surgical History No pertinent past surgical history Family History Paternal Grandmother Hx of diabetes mellitus Social History Housing: House Alcohol intake: current Alcohol intake frequency: holidays/special occasions only Patient Tobacco Use Status: Former Tobacco user e-Cigarette/Vaping Use: Never Used Current occupational status: employed Cognitive needs: No Hearing needs: No Vision needs: No Questionnaire Thrive Questionnaire Date Thrive assessed: 03/04/22 AUDIT C Alcohol Use Questionnaire (AUDIT-C) 1. How often do you have a drink containing alcohol?: Never 3. How often do you have six or more drinks on one occasion?: Never Total Score: 0 HARRISON-7 AMB Questionnaire HARRISON-7 Date HARRISON - 7 assessed: 03/04/22 Source: Developed by Drs. Michael Weller, Alicia Robledo, Inocencio Aaron and colleagues, with an educational griselda from [employer]. Review of Systems Const Denies fatigue, Denies fever(s), Denies headache(s) and Reports poor appetite ENT Denies change in voice, Denies dizziness, Denies headache(s), Denies hoarseness and Denies nasal congestion Card Reports no additional complaints Resp Reports no additional complaints GI Reports as per HPI, Denies melena, Denies hematochezia, Denies change in bowel habits, Denies change in stool character and Denies nausea Musc Reports no additional complaints Skin/Breast Denies rash Neuro Reports no additional complaints, Denies dizziness and Denies headache(s) Endo Reports no additional complaints and Denies fatigue Physical exam (Primary Care) Tobacco/Smoking Status: Tobacco use Status Tobacco use date assessed 04/11/22 04/11/22 14:35 Patient Tobacco Use Status Former Tobacco user 04/11/22 14:35 e-Cigarette/Vaping Use Never Used 04/11/22 14:35 Thrive Assessment: Date of Thrive Assessment Date Thrive assessed 03/04/22 04/11/22 14:35 Telehealth Telehealth Location of provider rendering services: practice address Location of patient: address on file Patient Identification confirmed using: Name, : Yes Telehealth method: video Patient verbally consented to treatment: Yes Patient verbally consented to billing insurance company: Yes Patient informed of any privacy concerns related to visit: Yes Minutes spent on Phone/Video with Pt.: 15 Assessment and Plan Assessment & Plan (1) Sliding hiatal hernia: Code(s): K44.9 - Diaphragmatic hernia without obstruction or gangrene Plan: Advised to chew his food well, avoid wearing tight clothing, especially around the waist , weight loss strongly recommended, currently on omeprazole 40 mg daily. (2) Encounters for administrative purposes: Code(s): Z02.9 - Encounter for administrative examinations, unspecified Plan: FMLA completed and given to patient, copy of form faxed to his medical record (3) GERD without esophagitis: Code(s): K21.9 - Gastro-esophageal reflux disease without esophagitis Plan: Followed by GI clinic, currently on omeprazole 40 mg daily (4) Diabetes mellitus with hyperglycemia, without long-term current use of insulin: Code(s): E11.65 - Type 2 diabetes mellitus with hyperglycemia Plan: Continued on metformin . stressed importance of following a diabetic diet and getting regular exercise. Medications: Changed From blood sugar diagnostic Check fasting blood sugar before meals and keep a record of readings 100 ea 6RF E11.65 - Type 2 diabetes mellitus with hyperglycemia To blood sugar diagnostic (FreeStyle Lite Strips) Check fasting blood sugartwice a day before meals and keep a record of readings 100 ea 6RF E11.65 - Type 2 diabetes mellitus with hyperglycemia Coding Level of Care Code Tele Est Pt Level 3 (46271) Diagnoses Sliding hiatal hernia K44.9 Encounters for administrative purposes Z02.9 GERD without esophagitis K21.9 Diabetes mellitus with hyperglycemia, without long-term current use of insulin E11.65
== END 2022-04-11 15:28 | disposition home or self-care (01) ==
LOC: HO.HMGC 14:38
PROVIDERS: PCP Internal Medicine; Visit Provider Internal Medicine
DX: K44.9 Diaphragmatic hernia without obstruction or gangrene (principal); K21.9 Gastro-esophageal reflux disease without esophagitis; E11.65 Type 2 diabetes mellitus with hyperglycemia
CPT/HCPCS: 99213

== ENCOUNTER 2022-04-27 12:26 | Outpatient (AMB) | payer OTHER, SELFPAY ==
--- NOTE | 2022-04-27 13:04 | MHC.PC.OV ---
Vital Signs 04/27/22 13:16 Height 5 ft 6 in Weight 202 lb BMI 32.5 BP 102/70 Blood Pressure Location Lt brachial Position Sitting Pulse 77 Pulse Source Pulse Oximeter Pulse Oximetry (%) 97 Oxygen Delivery Method Room Air Intake Visit Reasons: c/o ED Intake Note: Pt is here today c/o ED Allergies No Known Allergies Allergy (Verified 04/03/23 08:34) Medication List - Last Reconciled 04/27/22 by Leora Christopher MD blood sugar diagnostic (FreeStyle Lite Strips) Check fasting blood sugartwice a day before meals and keep a record of readings blood-glucose meter (FreeStyle Lite Meter kit) Check fasting blood sugar twice a day before meals lancets (FreeStyle Lancets) Check blood sugar as directed twice a day metformin 500 mg PO BID omeprazole 40 mg PO DAILY sucralfate 1 g PO BEDTIME Tobacco use date assessed: 04/27/22 HPI c/o ED HPI Details 38-year-old male with diabetes mellitus, poorly controlled, hyperlipidemia, obesity and GERD, here today complaining of having difficulty with maintaining penile erection during sexual intercourse. Patient states that this has been gradually coming on, still has morning erections, denies any urinary symptoms, no abnormal penile discharge. [facility] Medical History Dyslipidemia Erectile dysfunction Sliding hiatal hernia GERD without esophagitis Right upper quadrant abdominal pain Obesity (BMI 30.0-34.9) Diabetes mellitus with hyperglycemia, without long-term current use of insulin Surgical History No pertinent past surgical history Family History Paternal Grandmother Hx of diabetes mellitus Social History Housing: House Alcohol intake: current Alcohol intake frequency: holidays/special occasions only Patient Tobacco Use Status: Former Tobacco user e-Cigarette/Vaping Use: Never Used Current occupational status: employed Cognitive needs: No Hearing needs: No Vision needs: No Questionnaire Thrive Questionnaire Date Thrive assessed: 03/04/22 AUDIT C Alcohol Use Questionnaire (AUDIT-C) 1. How often do you have a drink containing alcohol?: Never Total Score: 0 HARRISON-7 AMB Questionnaire HARRISON-7 Date HARRISON - 7 assessed: 03/04/22 Source: Developed by Drs. Michael Weller, Alicia Robledo, Ioncencio Aaron and colleagues, with an educational griselda from [employer]. Review of Systems Const All systems reviewed & are unremarkable except as noted in HPI and below Card Denies chest pain, Denies rapid heart rate, Denies irregular heart rhythm, Denies lightheadedness and Denies dyspnea Resp Denies chest congestion, Denies cough and Denies dyspnea GI Reports heartburn (Controlled on omeprazole and sucralfate) Reports as per HPI, Denies hematospermia, Denies change in libido, Denies oliguria, Denies difficulty urinating, Denies difficulty with ejaculations, Denies genital lesions, Denies genital pain, Denies dysuria, Denies testicular mass and Denies testicular pain Neuro Reports no additional complaints Psych Denies change in libido Endo Denies change in libido Physical exam (Primary Care) Vital Signs: Last Vital Signs Pulse 77 04/27/22 13:16 BP 102/70 04/27/22 13:16 Pulse Ox 97 04/27/22 13:16 Oxygen Delivery Method Room Air 04/27/22 13:16 BMI result Body Mass Index 32.5 Tobacco/Smoking Status: Tobacco use Status Tobacco use date assessed 04/27/22 04/27/22 13:18 Patient Tobacco Use Status Former Tobacco user 04/27/22 13:06 e-Cigarette/Vaping Use Never Used 04/27/22 13:06 Thrive Assessment: Date of Thrive Assessment Date Thrive assessed 03/04/22 04/27/22 13:06 Const Other: Alert oriented x3, in mild pain distress due to pain in right upper quadrant of abdomen Nutritional Appearance: obese Orientation/consciousness: patient oriented x3 HENMT Mouth: Normal oral and palatal mucosa present, oropharynx normal and moist mucous membranes Neck Other: Supple, no lymphadenopathy, thyroid gland nonpalpable Resp Auscultation: clear to auscultation bilaterally Cardio Other: S1-S2 present regular rate and rhythm GI Inspection: Yes obesity Palpation (GI): Soft to palpation, no guarding, not rigid, no masses and No Rebound tenderness present General: Yes no CVA tenderness Male General Exam: Yes normal external exam Penis: normal penis Scrotum: scrotum normal, testes descended bilaterally, no inguinal hernias and no masses Back/Spine/Pelvis Back: no CVA tenderness and No back tenderness Skin General skin exam: no rashes or lesions noted Neuro General: patient oriented x3, gait normal, tone normal, moves all extremities, Normal light touch and pain sensation, no focal motor deficits, CN's II-XI intact bilaterally and normal sensation to monofilament Extrem General: Yes full ROM, Yes no joint enlargement, Yes no clubbing, cyanosis or edema, Yes no pedal edema and Yes normal gait Assessment and Plan Assessment & Plan (1) Erectile dysfunction: Code(s): N52.9 - Male erectile dysfunction, unspecified Qualifiers: Erectile dysfunction type: unspecified Qualified Code(s): N52.9 - Male erectile dysfunction, unspecified Plan: Likely due to uncontrolled diabetes mellitus, will check testosterone level, advised to get fasting labs done already ordered on last visit. (2) Diabetes mellitus with hyperglycemia, without long-term current use of insulin: Code(s): E11.65 - Type 2 diabetes mellitus with hyperglycemia Qualifiers: Diabetes mellitus type: type 2 Qualified Code(s): E11.65 - Type 2 diabetes mellitus with hyperglycemia Plan: get fasting labs done , already ordered on previous visit Orders: Orders Testosterone, Free/Total 04/27/22 N52.9 - Male erectile dysfunction, unspecified Coding Level of Care Code Est Pt Level 3 (81330) Diagnoses Erectile dysfunction, unspecified erectile dysfunction type N52.9 Erectile dysfunction type: unspecified Type 2 diabetes mellitus with hyperglycemia, without long-term current use of insulin E11.65 Diabetes mellitus type: type 2
[2022-04-27 13:16] VITALS: BP 102/70; PULSE 77; O2SAT 97; BMI 32.5
== END 2022-04-27 14:07 | disposition home or self-care (01) ==
LOC: HO.HMGC 12:26
PROVIDERS: PCP Internal Medicine; Visit Provider Internal Medicine
DX: N52.9 Male erectile dysfunction, unspecified (principal); E11.65 Type 2 diabetes mellitus with hyperglycemia
CPT/HCPCS: 99499

== ENCOUNTER → 2022-07-04 10:03 | Outpatient (BNVA) | payer OTHER, SELFPAY | PROVIDERS: PCP Internal Medicine; Visit Provider Nurse Practitioner Family ==

== ENCOUNTER 2022-07-18 12:09 | Outpatient (REF) | payer OTHER, SELFPAY ==
[2022-07-18 14:30] LABS: Estimated Average Glucose 174 mg/dL; Hemoglobin A1c % 7.7 %
[2022-07-18 14:35] LABS: Creatinine Urine 343.01 mg/dL; Microalbum/Creatinine Ratio Ur 4.6 ug/mg cr
[2022-07-18 14:39] LABS: Alanine Aminotransferase 41 U/L (0-40); Albumin Level 4.3 g/dL (3.5-5.0); Alkaline Phosphatase 101 U/L (39-117); Anion Gap 12 (12-20); Aspartate Amino Transferase 17 U/L (5-37); Bilirubin Direct 0.2 mg/dL (0.0-0.5); Bilirubin Total 0.6 mg/dL (0.0-1.0); Blood Urea Nitrogen 7 mg/dL (9-16); Calcium 9.4 mg/dL (8.4-10.2); Carbon Dioxide 27 mmol/L (22-29); Chloride 105 mmol/L (96-108); Cholesterol 208 mg/dL; Estimated Glomerular Filt Rate > 60; Glucose Fasting 169 mg/dL (60-99); HDL Cholesterol 44 mg/dL; LDL Cholesterol Calculated 132 mg/dl; Sodium 140 mmol/L (135-145); Total Protein 7.2 g/dL (6.5-8.0); Triglycerides 160 mg/dL
[2022-07-23 12:29] LABS: Testosterone, Free 55.1 pg/mL (35.0-155.0); Testosterone, Total 303 ng/dL (250-1100)
== END 2022-07-18 12:10 | disposition home or self-care (01) ==
LOC: HO.HMGCLDS 12:09
PROVIDERS: Absent Provider Nurse Practitioner Family; PCP Internal Medicine; Visit Provider Internal Medicine
DX: E11.65 Type 2 diabetes mellitus with hyperglycemia (principal); E66.9 Obesity, unspecified; N52.9 Male erectile dysfunction, unspecified; R10.9 Unspecified abdominal pain
CPT/HCPCS: 36415; 80048; 80061; 80076; 82043; 83036; 84402; 84403

== ENCOUNTER 2022-07-26 12:01 | Outpatient (AMB) | payer OTHER, SELFPAY ==
--- NOTE | 2022-07-26 12:32 | A.OFFPC_ITS ---
Vital Signs 07/26/22 12:37 Height 5 ft 6 in Weight 201 lb BMI 32.4 BP 110/82 Blood Pressure Location Rt brachial Position Sitting Pulse 69 Pulse Source Pulse Oximeter Pulse Oximetry (%) 98 Oxygen Delivery Method Room Air Intake Visit Reasons: 3 month follow u DM, Lipids, ED Intake Note: Pt is here today for his 3 mo. f/u DM, lipids and ED Allergies No Known Allergies Allergy (Verified 04/03/23 08:34) Tobacco use date assessed: 07/26/22 HPI 3 month follow u DM, Lipids, ED HPI Details 38-year-old male with hyperlipidemia, di abetes mellitus and history of erectile dysfunction, here today for his follow-up. He has been feeling well, blebs take his medications, tries to get some form of exercise on daily basis. Recent labs showed improvement in his blood sugar control with hemoglobin A1c now down to 7.7%. Fasting lipids showed elevated LDL cholesterol. [facility] Medical History Dyslipidemia Erectile dysfunction Sliding hiatal hernia GERD without esophagitis Right upper quadrant abdominal pain Obesity (BMI 30.0-34.9) Diabetes mellitus with hyperglycemia, without long-term current use of insulin Surgical History No pertinent past surgical history Family History Paternal Grandmother Hx of diabetes mellitus Social History Housing: House Alcohol intake: current Alcohol intake frequency: holidays/special occasions only Patient Tobacco Use Status: Former Tobacco user e-Cigarette/Vaping Use: Never Used Current occupational status: employed Cognitive needs: No Hearing needs: No Vision needs: No Questionnaire PHQ-9 Over the last 2 weeks, how often have you been bothered by any of the following problems? Depression Screening Interpretation: Negative Source: Developed by Drs. Michael Weller, Alicia Robledo, Inocencio Aaron and colleagues, with an educational griselda from [employer]. Thrive Questionnaire Date Thrive assessed: 07/15/22 AUDIT C Alcohol Use Questionnaire (AUDIT-C) 1. How often do you have a drink containing alcohol?: Never Total Score: 0 HARRISON-7 AMB Questionnaire HARRISON-7 Date HARRISON - 7 assessed: 07/15/22 Source: Developed by Drs. Michael Weller, Alicia Robledo, Inocencio Aaron and colleagues, with an educational griselda from [employer]. Review of Systems Const Denies chills, Denies fatigue, Denies fever(s) and Denies headache(s) ENT Denies change in voice, Denies dizziness, Denies headache(s), Denies hoarseness and Denies nasal congestion Card Reports no additional complaints Resp Reports no additional complaints GI Reports as per HPI, Reports belching, Denies melena, Reports bloating, Denies hematochezia and Denies change in bowel habits Reports no additional complaints Musc Reports no additional complaints Skin/Breast Denies rash Neuro Reports no additional complaints, Denies dizziness and Denies headache(s) Endo Reports no additional complaints and Denies fatigue Physical exam (Primary Care) Vital Signs: Last Vital Signs Pulse 69 07/26/22 12:37 BP 110/82 07/26/22 12:37 Pulse Ox 98 07/26/22 12:37 Oxygen Delivery Method Room Air 07/26/22 12:37 BMI result Body Mass Index 32.4 Tobacco/Smoking Status: Tobacco use Status Tobacco use date assessed 07/26/22 07/26/22 12:40 Patient Tobacco Use Status Former Tobacco user 07/26/22 12:34 e-Cigarette/Vaping Use Never Used 07/26/22 12:34 Depression Screening Interpretation: Negative Thrive Assessment: Date of Thrive Assessment Date Thrive assessed 07/15/22 07/26/22 12:34 Const Nutritional Appearance: obese Orientation/consciousness: patient oriented x3 HENMT Mouth: Normal oral and palatal mucosa present, oropharynx normal and moist mucous membranes Neck Other: Supple, no lymphadenopathy, thyroid gland nonpalpable Resp Auscultation: clear to auscultation bilaterally Cardio Other: S1-S2 present regular rate and rhythm GI Inspection: Yes obesity Palpation (GI): Soft to palpation, nontender, no guarding, not rigid, no masses and No Rebound tenderness present Neuro General: patient oriented x3, gait normal, tone normal, moves all extremities, Normal light touch and pain sensation, no focal motor deficits, CN's II-XI intact bilaterally and normal sensation to monofilament Extrem General: Yes full ROM, Yes no joint enlargement, Yes no clubbing, cyanosis or edema, Yes no pedal edema and Yes normal gait Results Reviewed Results Reviewed: RUN: 07/26/22 1250 PAGE 1 [facility] [address] [place] [id number] Rehab Director Occupational Therapist: Willis Olmedo M.D. Specimen Inquiry Name: HayleeSedrick Sudeep Age/Sex: 37/M : 1985 Unit#: [id number] Attend Dr: Leora Christopher MD Re07/18/22 Status: DEP REF Location: [facility] Disch: SPEC : [id number] JESSE: 07/18/22 STATUS: COMP REQ : [id number] RECD: 07/18/[address]: Leora Christopher MD COMP: 07/18/22 ENTERED: 07/18/22-[address]: Hilary Chandler [facility]- ORDERED: Liver Panel, Met Prof Fast, Lipid Panel Test Result Flag Reference Site Sodium 140 135-145 mmol/L Potassium 4.0 3.3-5.1 mmol/L CL 105 96-108 mmol/L CO2 27 22-29 mmol/L Gap 12 12-20 BUN 7 L 9-16 mg/dL Creat 0.86 0.5-1.4 mg/dL EGFR > 60 NOTE: For -Congolese individuals, multiply the result by 1.210. Chronic Kidney Disease: Estimated GFR < 60 mL/min/1.73m2 Severe Kidney Disease: Estimated GFR < 15 mL/min/1.73m2 FBS 169 H 60-99 mg/dL A fasting glucose of 126 mg/dl or greater on more than one occasion is considered diagnostic of diabetes. CA 9.4 8.4-10.2 mg/dL Total Bili 0.6 0.0-1.0 mg/dL Direct Bili 0.2 0.0-0.5 mg/dL AST (GOT) 17 5-37 U/L ALT (GPT) 41 H 0-40 U/L Protein, Total 7.2 6.5-8.0 g/dL Alb 4.3 3.5-5.0 g/dL Triglyceride 160 mg/dL Desirable Triglyceride: less than 150 mg/dL Borderline High Triglyceride 150-199 mg/dL High Triglyceride: 200-499 mg/dL Very High Triglyceride: greater than or equal to 5OO mg/dL Chol 208 mg/dL Desirable Cholesterol: less than 200 mg/dL Borderline High Cholesterol: 200-239 mg/dL High Cholesterol: greater than 239 mg/dL LDL Calculated 132 mg/dl Desirable LDL: less than 100 mg/dL Near Optimal/Above Optimal LDL: 110-129 mg/dL Borderline High LDL: 130-159 mg/dL High LDL: 160-189 mg/dL Very High LDL: greater than or equal to 190 mg/dL HDL 44 mg/dL Desirable HDL: greater than 40 mg/dL Note: This HDL assay may give artificially low results in patients with liver disease. Alk Phos 101 39-117 U/L A Laboratory Tests 07/18/22 07/18/22 12:25 12:25 Estimat Average Glucose 174 Hemoglobin A1c % 7.7 Urine Creatinine 343.01 Urine Microalbumin 16.0 Microalb/Creat Ratio 4.6 Assessment and Plan Assessment & Plan (1) Diabetes mellitus with hyperglycemia, without long-term current use of insulin: Code(s): E11.65 - Type 2 diabetes mellitus with hyperglycemia Plan: Hemoglobin A1c is better at 7.7 but not at goal of less than 6.5. Will increase metformin dose to 1000 mg in the morning with breakfast and 500 mg at night with supper. Continue checking blood sugar twice a day, and keep a log of the readings. Reinforced diabetic diet and regular exercise with patient. Counseled regarding importance of yearly diabetes retinopathy screening. Patient advised to inspect feet daily, for any signs of injury, callus or infection. Compliance with diet and regular exercise again stressed. Blood pressure goal is less than 130/80, goal LDL is less than 100 and goal hemoglobin A1c is less than 7% follow-up appointment made in-3--months, after fasting labs done. (2) Obesity (BMI 30.0-34.9): Code(s): E66.9 - Obesity, unspecified Plan: Discussed need to increase activity and wt reduction. Recommended focusing on improving your health instead of dieting. : Eat Mediterranean diet, limit foods high in fat, sugar, and calories, eat slowly, pay attention to portion sizes, plan your meals ahead of time, start regular physical activity 150 minutes of moderate intensity exercise or 90 minutes/week of vigorous exercise and increase water intake. (3) Dyslipidemia: Code(s): E78.5 - Hyperlipidemia, unspecified Plan: Fasting lipids reviewed with LDL cholesterol above 100 mg/dL. Will start on rosuvastatin 5 mg 1 tablet every other day. Stressed adherence to low- cholesterol diet and regular exercise, at least 30 minutes 3 to 4 times a week. Advised patient to make healthy food choices, eat more fruits, vegetables, whole grains, wild caught fish and low-fat dairy. Limit amount of meat and fried or fatty food products, as well as processed foods and fast foods. Follow-up scheduled with repeat fasting lipid panel in 3 months. Orders: Orders Hemoglobin A1c 3 Months E11.65 - Type 2 diabetes mellitus with hyperglycemia, E66.9 - Obesity, unspecified, E78.5 - Hyperlipidemia, unspecified Alanine Aminotransferase 3 Months E11.65 - Type 2 diabetes mellitus with hyperglycemia, E66.9 - Obesity, unspecified, E78.5 - Hyperlipidemia, unspecified Lipid Panel 3 Months E11.65 - Type 2 diabetes mellitus with hyperglycemia, E66.9 - Obesity, unspecified, E78.5 - Hyperlipidemia, unspecified Aspartate Amino Transferase 3 Months E11.65 - Type 2 diabetes mellitus with hyperglycemia, E66.9 - Obesity, unspecified, E78.5 - Hyperlipidemia, unspecified Basic Metabolic Panel Fasting 3 Months E11.65 - Type 2 diabetes mellitus with hyperglycemia, E66.9 - Obesity, unspecified, E78.5 - Hyperlipidemia, unspecified Medications: New rosuvastatin 5 mg PO Q2D 45 tabs 2RF 90 days E78.5 - Hyperlipidemia, unspecified Changed From metformin 500 mg PO BID 180 tabs 1RF E11.65 - Type 2 diabetes mellitus with hyperglycemia To metformin Take a 1000 mg in the morning with breakfast and 500 mg at night with supper 270 tabs 1RF E11.65 - Type 2 diabetes mellitus with hyperglycemia Coding Level of Care Code Est Pt Level 4 (41255) Diagnoses Diabetes mellitus with hyperglycemia, without long-term current use of insulin E11.65 Obesity (BMI 30.0-34.9) E66.9 Dyslipidemia E78.5
[2022-07-26 12:37] VITALS: BP 110/82; PULSE 69; O2SAT 98; BMI 32.4
== END 2022-07-26 13:23 | disposition home or self-care (01) ==
PROVIDERS: Visit Provider Internal Medicine
DX: E11.65 Type 2 diabetes mellitus with hyperglycemia (principal); E66.9 Obesity, unspecified; E78.5 Hyperlipidemia, unspecified; Z68.32 Body mass index [BMI] 32.0-32.9, adult
CPT/HCPCS: 99499

== ENCOUNTER 2022-09-14 14:20 | Outpatient (AMB) | payer OTHER, SELFPAY ==
--- NOTE | 2022-09-14 14:11 | A.OFFPC_ITS ---
Intake Visit Reasons: Gastro Referral-Stomach Pains Allergies No Known Allergies Allergy (Verified 09/14/22 14:54) Medication List - Last Reconciled 09/14/22 by Leora Christopher MD blood sugar diagnostic (FreeStyle Lite Strips) Check fasting blood sugartwice a day before meals and keep a record of readings blood-glucose meter (FreeStyle Lite Meter kit) Check fasting blood sugar twice a day before meals lancets (FreeStyle Lancets) Check blood sugar as directed twice a day metformin Take a 1000 mg in the morning with breakfast and 500 mg at night with supper omeprazole 40 mg PO DAILY rosuvastatin 5 mg PO Q2D 90 days Tobacco use date assessed: 09/14/22 Dental Screening Dental Screen Date: 09/14/22 Did you have a dental visit in the last 12 months?: Yes Did you have a dental problem in the last 6 months where you did not have access to dental care?: Yes Was dental information given to patient?: Patient has dentist HPI Gastro Referral-Stomach Pains HPI Details Tele health visit made with 37-year-old male diagnosed with sliding hiatal hernia, irritable bowel syndrome and chronic GERD , currently is on omeprazole 40 mg daily, requesting a referral to see [facility] instead of [facility] for his follow-up. Patient states that he is not satisfied with the care that he is getting from his present provider. 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 Heartburn symptoms however are controlled on omeprazole. [facility] Medical History Diabetes mellitus with hyperglycemia, without long-term current use of insulin Dyslipidemia Erectile dysfunction GERD without esophagitis Obesity (BMI 30.0-34.9) Right upper quadrant abdominal pain Sliding hiatal hernia Surgical History No pertinent past surgical history Family History Paternal Grandmother Hx of diabetes mellitus Social History Housing: House Alcohol intake: current Alcohol intake frequency: holidays/special occasions only Patient Tobacco Use Status: Former Tobacco user e-Cigarette/Vaping Use: Never Used Current occupational status: employed Cognitive needs: No Hearing needs: No Vision needs: No Questionnaire Thrive Questionnaire Date Thrive assessed: 07/15/22 I am a: Patient What is your living situation today?: I have a steady place to live Within the past 12 months, did the food you bought not last and you didn't have the money to get more?: Never true Within the past 12 months, did you worry whether your food would run out before you got money to buy more?: Never true Do you have trouble paying for medicines?: No Do you have trouble getting transportation to medical appointments?: No Do you have trouble paying your heating and electricity bill?: No Do you have trouble taking care of your child, family member or friend?: No Do you have trouble with day-to-day activities such as bathing, preparing meals, shopping, managing finances, etc.?: No Are you currently unemployed and looking for a job?: No Are you interested in more education?: No HARRISON-7 AMB Questionnaire HARRISON-7 Date HARRISON - 7 assessed: 07/15/22 Source: Developed by Drs. Michael Weller, Alicia Robledo, Inocencio Aaron and colleagues, with an educational griselda from [employer]. Review of Systems Const Denies fatigue, Denies fever(s), Denies headache(s) and Reports poor appetite ENT Denies change in voice, Denies dizziness, Denies headache(s), Denies hoarseness and Denies nasal congestion Card Reports no additional complaints Resp Reports no additional complaints GI Reports as per HPI, Denies melena, Reports bloating, Denies hematochezia, Denies change in bowel habits, Denies change in stool character and Denies nausea Reports no additional complaints Musc Reports no additional complaints Skin/Breast Denies rash Neuro Reports no additional complaints, Denies dizziness and Denies headache(s) Endo Reports no additional complaints and Denies fatigue Physical exam (Primary Care) Tobacco/Smoking Status: Tobacco use Status Tobacco use date assessed 09/14/22 09/14/22 14:12 Patient Tobacco Use Status Former Tobacco user 09/14/22 14:12 e-Cigarette/Vaping Use Never Used 09/14/22 14:12 Thrive Assessment: Date of Thrive Assessment Date Thrive assessed 07/15/22 09/14/22 14:12 Telehealth Telehealth Location of provider rendering services: practice address Location of patient: address on file Patient Identification confirmed using: Name, : Yes Telehealth method: video Patient verbally consented to treatment: Yes Patient verbally consented to billing insurance company: Yes Patient informed of any privacy concerns related to visit: Yes Minutes spent on Phone/Video with Pt.: 15 Assessment and Plan Assessment & Plan (1) GERD without esophagitis: Code(s): K21.9 - Gastro-esophageal reflux disease without esophagitis Plan: Continue with omeprazole and avoidance of triggers for heartburn. Referred to [facility] as per his request for follow-up (2) Sliding hiatal hernia: Code(s): K44.9 - Diaphragmatic hernia without obstruction or gangrene Plan: Continued on omeprazole Orders: Referrals Gastroenterology Referral K21.9 - Gastro-esophageal reflux disease without eso phagitis Coding Level of Care Code Tele Est Pt Level 3 (49357) Diagnoses GERD without esophagitis K21.9 Sliding hiatal hernia K44.9
== END 2022-09-14 15:58 | disposition home or self-care (01) ==
PROVIDERS: PCP Internal Medicine; Visit Provider Internal Medicine
DX: K21.9 Gastro-esophageal reflux disease without esophagitis (principal); K44.9 Diaphragmatic hernia without obstruction or gangrene
CPT/HCPCS: 99213

== ENCOUNTER 2022-12-23 12:09 | Outpatient (REF) | payer OTHER, SELFPAY ==
[2022-12-23 13:46] LABS: Estimated Average Glucose 194 mg/dL; Hemoglobin A1c % 8.4 % (<6.0)
[2022-12-23 13:54] LABS: Alanine Aminotransferase 39 U/L (0-40); Anion Gap 11 (12-20); Aspartate Amino Transferase 21 U/L (5-37); Blood Urea Nitrogen 12 mg/dL (9-16); Calcium 9.1 mg/dL (8.4-10.2); Carbon Dioxide 26 mmol/L (22-29); Chloride 105 mmol/L (96-108); Cholesterol 212 mg/dL (<200); Estimated Glomerular Filt Rate > 60; Glucose Fasting 182 mg/dL (60-99); HDL Cholesterol 34 mg/dL (>40); LDL Cholesterol Calculated 148 mg/dL (<100); Potassium 3.8 mmol/L (3.3-5.1); Sodium 138 mmol/L (135-145); Triglycerides 151 mg/dL (<150)
== END 2022-12-23 12:10 | disposition home or self-care (01) ==
LOC: HO.HMGCLDS 12:09
PROVIDERS: PCP Internal Medicine; Visit Provider Internal Medicine
DX: E11.65 Type 2 diabetes mellitus with hyperglycemia (principal); E66.9 Obesity, unspecified; E78.5 Hyperlipidemia, unspecified
CPT/HCPCS: 36415; 80048; 80061; 83036; 84450; 84460

== ENCOUNTER 2022-12-26 12:55 | Outpatient (AMB) | payer OTHER, SELFPAY ==
[2022-12-26 13:10] VITALS: BP 120/88; PULSE 98; O2SAT 98; BMI 32.0
--- NOTE | 2022-12-26 13:10 | A.OFFPC_ITS ---
Vital Signs 12/26/22 13:10 Height 5 ft 6 in Weight 198 lb BMI 32.0 BP 120/88 Blood Pressure Location Rt brachial Position Sitting Pulse 98 Pulse Source Pulse Oximeter Pulse Oximetry (%) 98 Oxygen Delivery Method Room Air Intake Visit Reasons: 3m follow up dm,ed,lipids (rescheduled) Intake Note: Pt is here today for his 3 mo. d/u DM,lipids and ED Allergies No Known Allergies Allergy (Verified 05/03/23 01:40) Medication List - Last Reconciled 12/26/22 by Leora Christopher MD blood sugar diagnostic (FreeStyle Lite Strips) Check fasting blood sugartwice a day before meals and keep a record of readings blood-glucose meter (FreeStyle Lite Meter kit) Check fasting blood sugar twice a day before meals lancets (FreeStyle Lancets) Check blood sugar as directed twice a day metformin Take a 1000 mg in the morning with breakfast and 500 mg at night with supper omeprazole 40 mg PO DAILY rosuvastatin 5 mg PO DAILY Tobacco use date assessed: 12/26/22 Dental Screening Dental Screen Date: 12/26/22 Did you have a dental visit in the last 12 months?: Yes Did you have a dental problem in the last 6 months where you did not have access to dental care?: No Was dental information given to patient?: Patient has dentist HPI 3m follow up dm,ed,lipids (rescheduled) HPI Details 38-year-old male here today for follow-u p on his diabetes mellitus, and hyperlipidemia. He was started on rosuvastatin 5 mg once a day on last visit 2 months ago and has been taking his metformin 1000 mg in a.m. and 500 mg at night with supper, but recent labs showed controlled diabetes mellitus with hemoglobin A1c at 8.4% and higher LDL cholesterol as compared to last check. Admits to being noncompliant with diet and no regular exercise done. [facility] Medical History Dyslipidemia Erectile dysfunction Sliding hiatal hernia GERD without esophagitis Right upper quadrant abdominal pain Obesity (BMI 30.0-34.9) Diabetes mellitus with hyperglycemia, without long-term current use of insulin Surgical History No pertinent past surgical history Family History Paternal Grandmother Hx of diabetes mellitus Social History Housing: House Alcohol intake: current Alcohol intake frequency: holidays/special occasions only Patient Tobacco Use Status: Former Tobacco user e-Cigarette/Vaping Use: Never Used Current occupational status: employed Cognitive needs: No Hearing needs: No Vision needs: No Questionnaire PHQ-9 Over the last 2 weeks, how often have you been bothered by any of the following problems? Depression Screening Interpretation: Negative Depression Screening Done: Yes Source: Developed by Drs. Michael Weller, Alicia Robledo, Inocencio Aaron and colleagues, with an educational griselda from [employer]. Thrive Questionnaire Date Thrive assessed: 07/15/22 HARRISON-7 AMB Questionnaire HARRISON-7 Date HARRISON - 7 assessed: 07/15/22 Source: Developed by Drs. Michael Weller, Alicia Robledo, Inocencio Aaron and colleagues, with an educational griselda from [employer]. Review of Systems Const Denies chills, Denies fatigue, Denies fever(s), Denies headache(s) and Denies weakness ENT Denies change in voice, Denies dizziness, Denies headache(s), Denies hoarseness and Denies nasal congestion Card Reports no additional complaints Resp Reports no additional complaints GI Reports as per HPI, Reports belching, Denies melena, Reports bloating, Denies hematochezia and Denies change in bowel habits Reports no additional complaints Musc Reports no additional complaints and Denies tingling Skin/Breast Denies rash Neuro Denies dizziness, Denies headache(s), Denies seizure-like activity, Denies Sensory deficit (Neuro), Denies tingling and Denies weakness Endo Reports no additional complaints and Denies fatigue Physical exam (Primary Care) Vital Signs: Last Vital Signs Pulse 98 12/26/22 13:10 BP 120/88 12/26/22 13:10 Pulse Ox 98 12/26/22 13:10 Oxygen Delivery Method Room Air 12/26/22 13:10 BMI result Body Mass Index 32.0 Tobacco/Smoking Status: Tobacco use Status Tobacco use date assessed 12/26/22 12/26/22 13:11 Patient Tobacco Use Status Former Tobacco user 12/26/22 13:11 e-Cigarette/Vaping Use Never Used 12/26/22 13:11 Depression Screening Interpretation: Negative Thrive Assessment: Date of Thrive Assessment Date Thrive assessed 07/15/22 12/26/22 13:11 Const Nutritional Appearance: obese Orientation/consciousness: patient oriented x3 HENMT Mouth: Normal oral and palatal mucosa present, oropharynx normal and moist mucous membranes Neck Other: Supple, no lymphadenopathy, thyroid gland nonpalpable Resp Auscultation: clear to auscultation bilaterally Cardio Other: S1-S2 present regular rate and rhythm GI Inspection: Yes obesity Palpation (GI): Soft to palpation, nontender, no guarding, not rigid and no masses Neuro General: patient oriented x3, gait normal, tone normal, moves all extremities, Normal light touch and pain sensation, no focal motor deficits, CN's II-XI intact bilaterally and normal sensation to monofilament Sensory Exam: No Sensory deficit (Neuro) Extrem General: Yes full ROM, Yes no joint enlargement, Yes no clubbing, cyanosis or edema, Yes no pedal edema and Yes normal gait Results Reviewed Results Reviewed: Name: Sedrick Leach Age/Sex: 37/M : 1985 Unit#: [id number] Attend Dr: Leora Christopher MD Re12/23/22 Status: DEP REF Location: [facility] Disch: SPEC : [id number] JESSE: 12/23/22-1220 STATUS: COMP REQ : [id number] RECD: 12/23/22-[address]: Leora Christopher MD COMP: 12/23/22-1354 ENTERED: 12/23/22-[address]: ORDERED: Met Prof Fast, AST, ALT, Lipid Panel Test Result Flag Reference Site Sodium 138 135-145 mmol/L Potassium 3.8 3.3-5.1 mmol/L CL 105 96-108 mmol/L CO2 26 22-29 mmol/L Gap 11 L 12-20 BUN 12 9-16 mg/dL Creat 0.86 0.5-1.4 mg/dL EGFR > 60 NOTE: For -Micronesian individuals, multiply the result by 1.210. Chronic Kidney Disease: Estimated GFR < 60 mL/min/1.73m2 Severe Kidney Disease: Estimated GFR < 15 mL/min/1.73m2 FBS 182 H 60-99 mg/dL A fasting glucose of 126 mg/dl or greater on more than one occasion is considered diagnostic of diabetes. CA 9.1 8.4-10.2 mg/dL AST (GOT) 21 5-37 U/L ALT (GPT) 39 0-40 U/L Triglyceride 151 H <150 mg/dL Desirable Triglyceride: less than 150 mg/dL Borderline High Triglyceride 150-199 mg/dL High Triglyceride: 200-499 mg/dL Very High Triglyceride: greater than or equal to 5OO mg/dL Cholesterol 212 H <200 mg/dL Desirable Cholesterol: less than 200 mg/dL Borderline High Cholesterol: 200-239 mg/dL High Cholesterol: greater than 239 mg/dL LDL Calculated 148 H <100 mg/dL Desirable LDL: less than 100 mg/dL Near Optimal/Above Optimal LDL: 110-129 mg/dL Borderline High LDL: 130-159 mg/dL High LDL: 160-189 mg/dL Very High LDL: greater than or equal to 190 mg/dL HDL 34 L >40 mg/dL Desirable HDL: greater than 40 mg/dL Laboratory Tests 12/23/22 12:20 Estimat Average Glucose 194 Hemoglobin A1c % 8.4 H Assessment and Plan Assessment & Plan (1) Dyslipidemia: Code(s): E78.5 - Hyperlipidemia, unspecified Plan: Lipids not at goal, increase rosuvastatin dosing to 10 mg 1 tablet daily, recheck another fasting lipid panel in 3 months. Reinforced importance of following a low-cholesterol diet and getting regular exercise at least 30-60 minutes on daily basis. (2) Diabetes mellitus with hyperglycemia, without long-term current use of insulin: Code(s): E11.65 - Type 2 diabetes mellitus with hyperglycemia Plan: Diabetes mellitus not controlled, increase metformin dose to a 1000 mg 1 tablet twice a day with meals. Reinforced importance of following recommended diet and getting regular exercise. Reminded to get yearly diabetes eye exam. Referred for construction crew member for further guidance. Return to 3 months (3) Obesity (BMI 30.0-34.9): Code(s): E66.9 - Obesity, unspecified Plan: Recommended focusing on improving your health instead of dieting. : Eat Mediterranean diet, limit foods high in fat, sugar, and calories, eat slowly, pay attention to portion sizes, plan your meals ahead of time, start regular physical activity 150 minutes of moderate intensity exercise or 90 minutes/week of vigorous exercise and stay well-hydrated with just water Medications: New rosuvastatin 10 mg PO DAILY 90 tabs 2RF Changed 2 From metformin Take a 1000 mg in the morning with breakfast and 500 mg at night with supper 270 tabs 1RF E11.65 - Type 2 diabetes mellitus with hyperglycemia To metformin Take 1 tablet twice a day with meals morning in evening 1,000 mg PO BID 180 tabs 3RF 3 months E11.65 - Type 2 diabetes mellitus with hyperglycemia Coding Level of Care Code Est Pt Level 4 (38770) Diagnoses Dyslipidemia E78.5 Diabetes mellitus with hyperglycemia, without long-term current use of insulin E11.65 Obesity (BMI 30.0-34.9) E66.9
== END 2022-12-26 14:34 | disposition home or self-care (01) ==
PROVIDERS: PCP Internal Medicine; Visit Provider Internal Medicine
DX: E78.5 Hyperlipidemia, unspecified (principal); E11.65 Type 2 diabetes mellitus with hyperglycemia; E66.9 Obesity, unspecified
CPT/HCPCS: 99499

== ENCOUNTER 2023-01-02 10:05 | Outpatient (AMB) | payer OTHER, SELFPAY ==
[2023-01-02 10:07] VITALS: BP 128/80; PULSE 80; BMI 32.1
--- NOTE | 2023-01-02 10:07 | MHC.OFFVIS ---
Intake Vital Signs 01/02/23 10:07 Height 5 ft 6 in Weight 198 lb 13.711 oz BMI 32.1 BP 128/80 Blood Pressure Location Rt brachial Position Sitting Pulse 80 Intake Visit Reasons: 6 month fu Intake Note: Sedrick presents in office today in 6 months follow up of GERD, IBS CC: Pt reports he has been having a poor appetite for about 3 months. He also reports having constipation. Denies other GI symptoms today. Clinical Cytogenetics Director Required: No Accompanied by: Self / Same As Patient Allergies No Known Allergies Allergy (Verified 12/26/22 13:16) HPI 6 month fu HPI Details LAST VISIT: GERD without esophagitis Continue omeprazole daily. Discussed with patient avoiding dietary triggers and late night snacking. Staying upright for minimum 3 hours after meals discussed with patient. IBS (irritable bowel syndrome) Low FODMAP diet discussed with patient. Continue to avoiding certain dietary triggers. Patient was encouraged to drink plenty fluids he can move his bowels better. I will see patient in 6 months, sooner on as needed basis. Patient is agreeable to this plan and verbalizes understanding of instructions. He was given the opportunity to ask questions and all questions answered. ? Thank you for allowing me to participate in his care Plan Orders Orders Liver Panel Today R10.9 - Unspecified abdominal pain Medications Changed From sucralfate 1 g PO BEDTIME 30 tabs 4RF K21.9 - Gastro-esophageal reflux disease without esophagitis To sucralfate 1 g PO BEDTIME PRN 30 tabs 4RF acid reflux K21.9 - Gastro-esophageal reflux disease without esophagitis TODAY'S VISIT: Patient is here today for follow-up. Patient reports that since last time I had seen him he has been doing well, however he does admit that occasionally he will feel like he has no appetite. Patient admits to feeling little down and depressed. He used to go to the gym and stopped going. Patient was worried about hiatal hernia and working out, however we discussed this last visit that he should be able to work out without having any issues. Patient's blood sugar is not well controlled. Patient was told that his blood sugars are high because he is not eating much. Patient admits to having pizza last night and this morning forgetting to take take his PPI. Patient denies any nausea or vomiting. Reports that he is not moving his bowels well every day. Patient does admit to feeling like he does not empty his bowels completely when he does have a bowel movement. Patient denies any melena, hematochezia, unintentional weight loss or ribbon like stools. Patient reports occasional dyspepsia without dysphagia or odynophagia. [facility] Medical History Dyslipidemia Erectile dysfunction Sliding hiatal hernia GERD without esophagitis Right upper quadrant abdominal pain Obesity (BMI 30.0-34.9) Diabetes mellitus with hyperglycemia, without long-term current use of insulin Surgical History No pertinent past surgical history Family History Paternal Grandmother Hx of diabetes mellitus Social History Housing: House Alcohol intake: current Alcohol intake frequency: holidays/special occasions only Patient Tobacco Use Status: Former Tobacco user e-Cigarette/Vaping Use: Never Used Current occupational status: employed Cognitive needs: No Hearing needs: No Vision needs: No Review of Systems Const Denies weight gain and Denies weight loss ENT Reports no additional complaints, Denies dysphagia and Denies odynophagia Card Reports no additional complaints Resp Reports no additional complaints GI Denies abdominal pain, Denies belching, Denies melena, Reports bloating, Reports constipation, Denies dysphagia, Denies excessive flatus, Denies dyspepsia, Reports heartburn (Occasional), Denies diarrhea, Denies loose stools, Denies nausea, Denies odynophagia and Denies vomiting Reports no additional complaints Musc Reports no additional complaints Neuro Reports no additional complaints Psych Reports no additional complaints Endo Reports no additional complaints Physical Exam Vital Signs: Last Vital Signs Pulse 80 01/02/23 10:07 BP 128/80 01/02/23 10:07 BMI result Body Mass Index 32.1 Const General: healthy appearing, no acute distress and well developed Nutritional Appearance: obese Orientation/consciousness: patient oriented x3 HEENT Head: Yes normal to inspection, Yes normocephalic and Yes atraumatic Face and sinus: Yes normal facial exam Mouth: Normal oral and palatal mucosa present Throat: Yes posterior oropharynx normal, Yes tonsils normal and Yes uvula midline Eyes General: appearance normal, both eyes and all related structures Neck Neck: Yes normal visual inspection, Yes full ROM and Yes trachea midline Thyroid: Thyroid normal Resp Effort & Inspection: normal respiratory effort, able to speak in complete sentences, no tracheal deviation and symmetric chest movement Auscultation: clear to auscultation bilaterally Cardio Rate: regular rate Heart sounds: S1 normal heart sound present and S2 normal heart sound present GI Inspection: Yes normal to inspection, No distended and Yes obesity Palpation (GI): Soft to palpation, not firm, nontender and No hepatosplenomegaly present Auscultation: normal bowel sounds General: Yes no CVA tenderness Back/Spine/Pelvis Back: no CVA tenderness Skin General skin exam: elasticity normal, turgor normal and dry skin Neuro General: patient oriented x3 Psych Appearance: grossly normal Mental Status: mental status grossly normal Assessment & Plan Assessment & Plan (1) GERD without esophagitis: Code(s): K21.9 - Gastro-esophageal reflux disease without esophagitis (2) Sliding hiatal hernia: Code(s): K44.9 - Diaphragmatic hernia without obstruction or gangrene (3) IBS (irritable bowel syndrome): Code(s): K58.9 - Irritable bowel syndrome without diarrhea Qualifiers: Irritable bowel syndrome type: with constipation Qualified Code(s): K58.1 - Irritable bowel syndrome with constipation Plan Continue with omeprazole every morning. The importance of avoiding dietary triggers discussed with patient. Patient was encouraged not to be eating late at night. Staying upright from minimum 3 hours after meals discussed with patient. Patient was encouraged to exercise. Discussed with patient low FODMAP diet. He will try senna at bedtime. Patient was also encouraged to increase fluid intake and activity to promote better bowel motility. I will see him in 6 months, sooner on as needed basis. Patient is agreeable to this plan and verbalizes understanding of instructions. He was given the opportunity to ask questions and all questions answered. Thank you for allowing me to participate in his care Medications: New sennosides (Natural Senna Laxative) 8.6 mg PO BEDTIME 90 tabs 3RF constipation K59.00 - Constipation, unspecified Coding Level of Care Code Est Pt Level 4 (42410) Diagnoses GERD without esophagitis K21.9 Sliding hiatal hernia K44.9 Irritable bowel syndrome with constipation K58.1 Irritable bowel syndrome type: with constipation Time Spent (min) 35 Comment 25 minute spent with patient and additional 10 minutes spent reviewing his records
== END 2023-01-02 10:31 | disposition home or self-care (01) ==
PROVIDERS: PCP Internal Medicine; Visit Provider Nurse Practitioner Family
DX: K21.9 Gastro-esophageal reflux disease without esophagitis (principal); K44.9 Diaphragmatic hernia without obstruction or gangrene; K58.1 Irritable bowel syndrome with constipation
CPT/HCPCS: 99214

== ENCOUNTER → 2023-01-02 10:05 | Outpatient (BNVA) | payer OTHER, SELFPAY | PROVIDERS: PCP Internal Medicine; Visit Provider Nurse Practitioner Family ==

== ENCOUNTER 2023-04-03 08:12 | Outpatient (AMB) | payer OTHER, SELFPAY ==
[2023-04-03 08:33] VITALS: BP 124/88; PULSE 90; TEMP 36.7; O2SAT 96; BMI 31.6
--- NOTE | 2023-04-03 08:33 | MHC.OFFWIV ---
Intake Vital Signs 04/03/23 08:33 Height 5 ft 6 in Weight 196 lb BMI 31.6 BP 124/88 Blood Pressure Location Lt brachial Position Sitting Pulse 90 Pulse Source Pulse Oximeter Temp 98.0 F Temp Source Temporal Artery Scan Pulse Oximetry (%) 96 Oxygen Delivery Method Room Air Intake Visit Reasons: EP Cough, SOB, ?Congestion [phone] Intake Note: pt is here today of cough SOB congestion started 3 weeks ago Patient Tobacco Use Status: Former Tobacco user Allergies No Known Allergies Allergy (Verified 04/03/23 08:34) Do you need a note to return to daycare/school/sports/work: Yes HPI HPI Comments History of Present Illness Details Patient presents to the walk in for 3 weeks cough He reports it was a dry cough but now seems to have ?settled in his chest? and is productive of yellow sputum Has not been checking her temperature, does not feel like he is any fevers. Denies known sick contact Denies sinus congestion, fever, chest pain, shortness of breath, palpitations, syncope, weakness Denies headache, ear pain, sore throat. [facility] Medical History Dyslipidemia Erectile dysfunction Sliding hiatal hernia GERD without esophagitis Right upper quadrant abdominal pain Obesity (BMI 30.0-34.9) Diabetes mellitus with hyperglycemia, without long-term current use of insulin Surgical History No pertinent past surgical history Family History Paternal Grandmother Hx of diabetes mellitus Social History Housing: House Alcohol intake: current Alcohol intake frequency: holidays/special occasions only Patient Tobacco Use Status: Former Tobacco user e-Cigarette/Vaping Use: Never Used Current occupational status: employed Cognitive needs: No Hearing needs: No Vision needs: No Review of Systems Const All systems reviewed & are unremarkable except as noted in HPI and below Physical Exam Vital Signs: Last Vital Signs Temp 98.0 F 04/03/23 08:33 Pulse 90 04/03/23 08:33 BP 124/88 04/03/23 08:33 Pulse Ox 96 02/19/24 08:33 Oxygen Delivery Method Room Air 04/03/23 08:33 BMI result Body Mass Index 31.6 General: awake, alert, oriented. Answers questions appropriately. Fully engaged in examination. Skin: warm, dry, intact HEENT: TMs intact bilaterally, no redness. Posterior pharynx without erythema or exudate. Sclera without icterus or injection. Cardiac: External chest normal in appearance. Respiratory: +cough. LSCTAB. Abdomen: without gross distension. Neurological: Oriented to person, place, time and situation. Thought process intact. Psychiatric: Appropriate mood and affect. Good judgment and insight. Assessment & Plan Assessment & Plan (1) Bronchitis: Code(s): J40 - Bronchitis, not specified as acute or chronic Plan Prednisone 40 mg p.o. daily x5 days Z-Valeriy as prescribed Benzonatate 100mg po bid as needed Rest, drink plenty of fluids, tylenol or motrin as needed. Follow up with pcp or in clinic for any new or worsening symptoms. Go to ER for shortness of breath, chest pain, palpitations, weakness, dizziness. Medications: New benzonatate 100 mg PO BID PRN 20 caps 0RF cough prednisone 40 mg (2 x 20 mg) PO DAILY 10 tabs 0RF 5 days azithromycin For 250 mg dose pack: take 500 mg today (day 1), then 250 mg for 4 days (days 2-5) PO 6 tabs 0RF Coding Level of Care Code Est Pt Level 3 (68471) Diagnoses Bronchitis J40
== END 2023-04-03 10:36 | disposition home or self-care (01) ==
PROVIDERS: PCP Internal Medicine; Visit Provider Registered Nurse Emergency
DX: J40 Bronchitis, not specified as acute or chronic (principal)
CPT/HCPCS: 99213

== ENCOUNTER 2024-05-25 11:18 | Outpatient (AMB) | payer OTHER, SELFPAY ==
[2024-05-25 13:02] VITALS: BP 120/80; PULSE 86; TEMP 36.8; O2SAT 98
--- NOTE | 2024-05-25 13:02 | MHC.OFFWIV ---
Intake Vital Signs 05/25/24 13:02 Height 5 ft 6 in BP 120/80 Blood Pressure Location Rt brachial Position Sitting Pulse 86 Pulse Source Pulse Oximeter Temp 98.2 F Temp Source Oral Pulse Oximetry (%) 98 Intake Visit Reasons: EP Sinus infection? ([phone] car) Patient Tobacco Use Status: Former Tobacco user Allergies No Known Allergies Allergy (Verified 05/03/23 01:40) Do you need a note to return to daycare/school/sports/work: Yes HPI HPI Comments History of Present Illness Details Sedrick presents with facial pain and swelling that started on . He believes he may have a sinus infection, which he reports never having experienced before. The patient describes facial pain and swelling, particularly noticeable in two areas of his face. He reports that his whole face just hurts and his nose is raw. Sedrick is experiencing congestion and difficulty breathing. He denies fever or chills but mentions that he is sweating a lot. The patient reports headaches but denies any teeth pain or pain in the hip or jaw. Sedrick has tried taking Claritin for symptom relief. He also mentions that taking baths has helped alleviate his symptoms. The patient denies any known allergies. He expresses particular concern about the swelling in his upper lip area, which he describes as right here is, like, swollen. Sedrick reports that he has been blowing his nose frequently, which may be contributing to irritation in that area. The patient has not tried any other treatments beyond Claritin and baths. He does not report any recent healthcare interactions related to these symptoms prior to this visit. [facility] Medical History Dyslipidemia Erectile dysfunction Sliding hiatal hernia GERD without esophagitis Right upper quadrant abdominal pain Obesity (BMI 30.0-34.9) Diabetes mellitus with hyperglycemia, without long-term current use of insulin Surgical History No pertinent past surgical history Family History Paternal Grandmother Hx of diabetes mellitus Social History Housing: House Alcohol intake: current Alcohol intake frequency: holidays/special occasions only Patient Tobacco Use Status: Former Tobacco user e-Cigarette/Vaping Use: Never Used Current occupational status: employed Cognitive needs: No Hearing needs: No Vision needs: No Review of Systems ENT Reports facial pain, Reports nasal congestion and Reports nasal discharge Physical Exam Vital Signs: Last Vital Signs Temp 98.2 F 05/25/24 13:02 Pulse 86 05/25/24 13:02 BP 120/80 05/25/24 13:02 Pulse Ox 98 05/25/24 13:02 Const General: cooperative, healthy appearing, no acute distress and alert Orientation/consciousness: patient oriented x3 Limitations: no limitations HEENT Head: Yes normal to inspection Ears: hearing grossly normal bilaterally General nose exam: Normal external nose present Resp Effort & Inspection: normal respiratory effort and able to speak in complete sentences Cardio Rate: regular rate Skin General skin exam: no rashes or lesions noted Neuro General: patient oriented x3 Extrem General: Yes normal to inspection Assessment & Plan Assessment & Plan (1) Sinusitis: Code(s): J32.9 - Chronic sinusitis, unspecified Qualifiers: Sinusitis location: maxillary Chronicity: acute Recurrence: non-recurrent Qualified Code(s): J01.00 - Acute maxillary sinusitis, unspecified Plan Suspected Acute Sinusitis: - Patient reports facial pain, swelling, and congestion starting - Denies fever but reports sweating and headaches - No dental pain or jaw pain - Physical examination revealed no pain on sinus palpation - Duration of symptoms less than typical 10-day criteria for sinusitis diagnosis - Severity of symptoms warrants consideration of treatment - Differential diagnosis includes viral upper respiratory infection versus bacterial sinusitis Plan: - Prescribe Flonase nasal spray - Recommend continued use of Claritin - Recommend [id number] Afrin nasal spray for no more than 3 days - Recommend saline nasal rinses (e.g., Neti Pot or Dr. Ramirez's saline rinse) - Prescribe antibiotics with instructions to hold for 2 days and start only if symptoms worsen or fever develops - Follow up with primary care provider if symptoms persist or worsen Medications: New fluticasone propionate 50 mcg/actuation (Allergy Relief (fluticasone)) administer into each nostril 1 spray intranasal BID 10 days 16 grams 0RF oxymetazoline 0.05% (Afrin (oxymetazoline)) 2 sprays intranasal Q12H 3 days PRN 15 mL 0RF nasal congestion amoxicillin-pot clavulanate 875-125 mg 1 tab PO BID 10 days 20 tabs 0RF Coding Level of Care Code Est Pt Level 4 (45508) Diagnoses Acute non-recurrent maxillary sinusitis J01.00 Sinusitis location: maxillary Chronicity: acute Recurrence: non-recurrent
== END 2024-05-25 14:14 | disposition home or self-care (01) ==
PROVIDERS: PCP Internal Medicine; Visit Provider Physician Assistant
DX: J01.00 Acute maxillary sinusitis, unspecified (principal)

== ENCOUNTER → 2024-05-25 11:18 | Outpatient (BNVA) | payer OTHER, SELFPAY | PROVIDERS: PCP Internal Medicine | DX: Z13.89 Encounter for screening for other disorder (principal) ==

== ENCOUNTER 2024-05-28 11:07 | Outpatient (AMB) | payer OTHER, SELFPAY ==
--- NOTE | 2024-05-28 11:11 | AM.OFFWIN_ITS ---
Intake Vital Signs 05/28/24 11:12 Weight 190 lb BP 130/90 H Blood Pressure Location Rt brachial Position Sitting Pulse 95 Pulse Source Pulse Oximeter Temp 98.1 F Temp Source Oral Pulse Oximetry (%) 98 Oxygen Delivery Method Room Air Intake Visit Reasons: EP-sinus infection f/up from 05/25/24 Intake Note: Patient here to f/u after having a sinus infection which he was treated for on monday. Patient Tobacco Use Status: Former Tobacco user Allergies No Known Allergies Allergy (Verified 05/28/24 11:13) Do you need a note to return to daycare/school/sports/work: Yes HPI HPI Comments History of Present Illness Details This is a 39-year-old male with a past medical history of shl-lbjhiag-jcnwmthvy diabetes presenting for re-evaluation of a sinus infection for which he was initially seen on May 25. Patient was prescribed fluticasone, Afrin and Augmentin which she continues to take at this time. Patient states that he continues to have focal pain inside of his right nostril but the swelling of his face has significantly improved. Patient is requesting a work note so that he may take FMLA from work. He denies having any fevers, chills, cough, shortness for breath, sore throat or ear pain. [facility] Medical History Dyslipidemia Erectile dysfunction Sliding hiatal hernia GERD without esophagitis Right upper quadrant abdominal pain Obesity (BMI 30.0-34.9) Diabetes mellitus with hyperglycemia, without long-term current use of insulin Surgical History No pertinent past surgical history Family History Paternal Grandmother Hx of diabetes mellitus Social History Housing: House Alcohol intake: current Alcohol intake frequency: holidays/special occasions only Patient Tobacco Use Status: Former Tobacco user e-Cigarette/Vaping Use: Never Used Current occupational status: employed Cognitive needs: No Hearing needs: No Vision needs: No Review of Systems Const All systems reviewed & are unremarkable except as noted in HPI and below Denies chills, Denies fatigue and Denies fever(s) Eyes Reports no additional complaints, Denies exophthalmos and Denies change in vision ENT Reports as per HPI and Reports other (pain right nostril) Card Reports no additional complaints, Denies chest pain and Denies dyspnea Resp Reports no additional complaints, Denies cough, Denies hemoptysis and Denies dyspnea GI Reports no additional complaints Reports no additional complaints Musc Reports no additional complaints Skin/Breast Reports system reviewed and no additional complaints, except as documented Neuro Reports no additional complaints Psych Reports no additional complaints Endo Reports no additional complaints and Denies fatigue Lew/Lymph Reports no additional complaints Aller/Immun Reports no additional complaints Physical Exam Vital Signs: Last Vital Signs Temp 98.1 F 05/28/24 11:12 Pulse 95 05/28/24 11:12 BP 130/90 H 05/28/24 11:12 Pulse Ox 98 05/28/24 11:12 Oxygen Delivery Method Room Air 05/28/24 11:12 Patient is afebrile and well appearing. Const General: cooperative, healthy appearing, comfortable, no acute distress, well developed, alert and awake Nutritional Appearance: well nourished Orientation/consciousness: patient oriented x3 Limitations: no limitations HEENT Head: Yes normal to inspection and Yes normocephalic Ears: hearing grossly normal bilaterally, external ears normal, TM's normal bila terally and EAC's normal General nose exam: Normal external nose present, nares abnormal (tenderness inside lower aspect right nare; no lesions appreciated), Normal nasal mucous membranes and turbinates present and No nasal discharge present Face and sinus: Yes normal facial exam and Yes sinuses nontender Mouth: Normal oral and palatal mucosa present Teeth and gingiva: dentition normal Throat: Yes posterior oropharynx normal Eyes General: appearance normal, both eyes and all related structures Skin General skin exam: no rashes or lesions noted Neuro General: patient oriented x3 Psych Appearance: grossly normal Mental Status: mental status grossly normal Insight: Good insight present (Psych) Judgement: Good judgement present (Psych) Assessment & Plan Assessment & Plan (1) Pain, nose: Comment: There is no clinical evidence of an acute bacterial sinusitis at this time. Patient is nasal tenderness may be related to a small internal abscess or herpes eruption. Patient will be discharged home and instructed to continue taking his Augmentin as previously prescribed. Code(s): J34.89 - Other specified disorders of nose and nasal sinuses Plan: Continue Augmentin until your prescription is complete, Tylenol or ibuprofen as needed for discomfort. Patient is provided with a work note for Monday and Monday. Coding Level of Care Code Est Pt Level 3 (66978) Diagnoses Pain, nose J34.89 Time Spent (min) 20
[2024-05-28 11:12] VITALS: BP 130/90; PULSE 95; TEMP 36.7; O2SAT 98
--- OUTSIDE RECORDS SUMMARY | 2024-05-28 13:45 | XMS_ITS | Clinical Summary ---
Author Organization [facility] Address [address] [place] [id number] Phone Care Team Providers Care Wildlife And Game Protector Name Role Phone Unavailable Primary Care Provider Unavailabl e Immunizations Immunization Administration Dates Next Due Hep B, ped/adol 11/01/1999,10/24/1997,12/26/1996 MMR 10/24/1997 Td (adult) (MBL), 2 Lf tetan us toxoid, PF, adsorbed 11/01/1999 Social History Tobacco Use Types Packs/Day Years Used Date Smoking Tobacco: Never Assessed Comments Unknown Sex and Gender Information Value Date Recorded Sex Assigned at Not on file Legal Sex Unknown 09/23/2016 3:25 PM EDT Gender Identity Not on file Sexual Orientation Not on file Plan of Treatment Health Maintenance Due Date Last Done Comments Varicella Vaccines (1 of 2 - 13+ 2-dose series) 11/21/1997 DTaP,Tdap,and Td Vaccines (2 - Tdap) 11/02/1999 11/01/1999 Influenza Vaccines (#1) 2023 COVID-19 Vaccine (1 - 2023-2 5 season) 2023 MMR Vaccines Completed 10/24/1997 Hepatitis B Vaccines Completed 11/01/1999, 10/24/1997, 12/26/1996 HIB Vaccines Aged Out No longer eligi ble based on patient's age to complete this topic HPV Vaccines Aged Out No longer eligi ble based on patient's age to complete this topic Hepatitis A Vaccines Aged Out No long er eligible based on patient's age to complete this topic IPV Vaccines Aged Out No longer eligi ble based on patient's age to complete this topic Men B Vaccine Aged Out No longer elig ible based on patient's age to complete this topic Meningococcal Vaccine Aged Out No olena vladimir eligible based on patient's age to complete this topic Pneumococcal Vaccine Aged Out No long er eligible based on patient's age to complete this topic
== END 2024-05-28 11:26 | disposition home or self-care (01) ==
PROVIDERS: PCP Internal Medicine; Visit Provider Physician Assistant
DX: J34.89 Other specified disorders of nose and nasal sinuses (principal)

== ENCOUNTER → 2024-05-28 11:07 | Outpatient (BNVA) | payer OTHER, SELFPAY | PROVIDERS: PCP Internal Medicine | DX: Z13.89 Encounter for screening for other disorder (principal) ==

== ENCOUNTER 2024-09-14 08:51 | Emergency (ER) | payer OTHER, SELFPAY ==
--- NOTE | 2024-09-14 | ECG_ITS ---
Test Reason : DIZZY Blood Pressure : */* mmHG Vent. Rate : 86 BPM Atrial Rate : 86 BPM P-R Int : 164 ms QRS Dur : 92 ms QT Int : 358 ms P-R-T Axes : 35 0 11 degrees QTcB Int : 428 ms Normal sinus rhythm Possible Inferior infarct , age undetermined Abnormal ECG When compared with ECG of 06-Dec-2009 18:55, MANUAL COMPARISON REQUIRED PREVIOUS ECG IS INCOMPATIBLE Referred By: Generic ED Physician Electronically Signed By: ZACHERY FERRER MD
[2024-09-14 08:54] VITALS: BP 137/93; PULSE 92; RESP 17; TEMP 36.2; O2SAT 97; BMI 30.6
--- NOTE | 2024-09-14 09:08 | PC.NURSE ---
Addendum entered by Deepika Brian RN 09/14/24 09:38: Patient is a 39-year-old male with a past medical history of ydq-gvucrwc-fvbxegium diabetes presenting with black stool x 1 and blood noted on his toilet tissue. Denies any abdominal pain. Rectum assessed by the provider and thrombosed hemmorhoid noted. Patient refused the rectal exam. Lungs clear bilat. Respirations even and non-labored. Abdomen soft, non-tender with positive bowel sounds. Positive pedal pulses with no edema noted. Original Note: Medical History Dyslipidemia Erectile dysfunction Sliding hiatal hernia GERD without esophagitis Right upper quadrant abdominal pain Obesity (BMI 30.0-34.9) Diabetes mellitus with hyperglycemia, without long-term current use of insulin
--- OUTSIDE RECORDS SUMMARY | 2024-09-14 09:13 | XMS_ITS | Clinical Summary ---
Author Organization [facility] Address [address] [place] [id number] Phone Care Team Providers Care Cloth Classer Name Role Phone Unavailable Primary Care Provider [...] Td Vaccines (2 - Tdap) 11/02/1999 11/01/1999 COVID-19 Vaccine (2023-2 5 season) 2023 Influenza Vaccines (#1) 2024 MMR Vaccines Completed 10/24/1997 Hepatitis B Vaccines [...]
--- NOTE | 2024-09-14 09:32 | ED.GENADULT ---
HPI - General Adult General Chief complaint: General Medical Stated complaint: black stools Time Seen by Provider: 09/14/24 09:09 History of Present Illness HPI narrative: Patient is a 39-year-old male saw his primary physician on Monday has a known history of hemorrhoids. Patient noted multiple episodes of black stool. Patient from home. Not on Pepto-Bismol. Denies any fever chills. Noticed some blood in his stool. Also had diarrhea. Patient from home. Not on blood thinners. Not on iron. Not on Pepto-Bismol. No history of colonoscopy positive history of diabetes in addition patient have a mild pain to his left chest. Patient denies any diaphoresis. No fever no chills. Patient is from home. Related Data Previous Rx's ?Medication ?Instructions ?Recorded blood-glucose meter (FreeStyle #1 ea 04/14/20 Lite Meter kit) lancets 28 gauge (FreeStyle #100 ea 01/04/22 Lancets) blood sugar diagnostic (FreeStyle #100 ea 04/11/22 Lite Strips) metformin 1,000 mg tablet 1,000 mg PO BID 3 months #180 tabs 12/26/22 omeprazole 40 mg capsule,delayed 40 mg PO DAILY #90 caps 04/10/23 release amoxicillin 875 mg-potassium 1 tab PO BID 10 days #20 tabs 05/25/24 clavulanate 125 mg tablet fluticasone propionate 50 1 spray intranasal BID 10 days #16 05/25/24 mcg/actuation nasal grams spray,suspension (Allergy Relief (fluticasone)) oxymetazoline 0.05 % nasal spray 2 spray intranasal Q12H PRN nasal 05/25/24 (Afrin (oxymetazoline)) congestion 3 days #15 mL Allergies Allergy/AdvReac Type Severity Reaction Status Date / Time No Known Allergies Allergy Verified 09/14/24 08:59 Review of Systems Review of Systems: No fever no chills no cough no congestion Yes all other systems are reviewed and are negative PMFSH Past Medical History Attestation statement: The following information was validated with the patient. Medical History Dyslipidemia Erectile dysfunction Sliding hiatal hernia GERD without esophagitis Right upper quadrant abdominal pain Obesity (BMI 30.0-34.9) Diabetes mellitus with hyperglycemia, without long-term current use of insulin Surgical History No pertinent past surgical history Family History Family History Paternal Grandmother Hx of diabetes mellitus Social History Social History Housing: House Alcohol intake: current Alcohol intake frequency: holidays/special occasions only Patient Tobacco Use Status: Former Tobacco user Smoked in Last 30 Days: No e-Cigarette/Vaping Use: Never Used Substance Use Type: Marijuana Advance Directives: No Advance Directives Information Provided: No Do you have a plan to hurt others: No Plan Current occupational status: employed Cognitive needs: No Hearing needs: No Vision needs: No Physical Exam ED Exam Exam: Appearance: Alert. Oriented X3. No acute distress. Eyes: Pupils equal, round and reactive to light. ENT: Pharynx normal. Neck: Normal inspection. Neck supple. No lymph nodes noted. No crepitus CVS: Normal heart rate and rhythm. Pulses normal. Normal S1 and S2 Respiratory: No respiratory distress. Breath sounds normal. No Wheezing. No rales Abdomen: Soft and nontender. No rigidity. No distention. good BS x4 Patient refused rectal exam. We did look at the outside part of his anus which showed a large thrombosed hemorrhoid noted and the 9 o'clock position. Skin: Skin warm and dry. Normal skin color. Normal skin turgor. Extremities: No lower extremity edema. Neurovascular intact to all extremities. No Lacerations. No Rash Neuro: Oriented X 3. No motor deficit. No sensory deficit. Moving all extermities. No slurred speech Vital Signs: Vital Signs - 24 hr 09/14/24 08:54 09/14/24 12:50 Temperature 97.1 F 97.5 F Pulse Rate 92 86 Respiratory Rate 17 16 Blood Pressure 137/93 H 136/80 Pulse Oximetry 97 98 Oxygen Delivery Method Room Air Room Air BMI result Body Mass Index 30.6 Medications Administered Discontinued Medications Generic Name Dose Route Start Last Admin Trade Name Freq PRN Reason Stop Dose Admin Sodium Chloride 1,000 mls @ 999 mls/hr 09/14/24 09:45 09/14/24 12:22 Ns IV 09/14/24 10:45 Infused .Q1H1M EDITH Infusion Sodium Chloride 1,000 mls @ 999 mls/hr 09/14/24 09:45 09/14/24 12:21 Ns IV 09/14/24 10:45 Infused .Q1H1M EDITH Infusion Insulin Human Regular 5 unit 09/14/24 09:36 09/14/24 10:21 Insulin Regular, Human 100 Unit/Ml 10 Ml Vial IVPUSH 09/14/24 09:37 5 unit ONCE ONE Administration Medical Decision Making Medical Decision Making [facility] Narrative: Atypical chest pain and EKG was obtained it showed a sinus rhythm heart rate was 90 GA QRS QTC normal no acute ST segment elevation. Patient will receive multiple sets of troponin. Will monitor carefully. Question blood in the stool. Will do orthostatic will go ahead and get patient's hemoglobin. Repeat hemoglobin 4 hours. Patient not on blood thinners. Currently in stable condition. Patient refused rectal exam. Does have a large hemorrhoid noted thrombosed on the outside of his anus. Patient's hemoglobin is 15. Doubt patient has significant GI bleed. Patient neurologically intact. No distress. Two sets of troponin was done for nonspecific chest pain that lasts for a few sec. They were negative. Patient in no distress. Patient's glucose of note was over 400. Anion gap was normal bicarb was normal there is no evidence for DKA. Was given insulin fluids. Sugars down to 200 explained to patient he needs close follow-up. Worsening condition return. In stable condition. Differential Diagnosis Differential Diagnoses: The differential diagnosis associated with the presentation includes ACS, GI bleed, hemorrhoids Admission/Observation Consideration of admission/observation: Escalation of care including admission/observation considered Lab Data [facility] Lab Attestation statement: I reviewed the patient's lab results. 09/14/24 09:21 09/14/24 09:21 Labs: Lab Results 09/14/24 09/14/24 09/14/24 Range/Units 09:21 09:32 11:51 WBC 7.8 (4.8-10.8) X10*3/uL RBC 4.99 (4.60-5.80) X10*6/uL Hgb 15.3 (14.0-18.0) g/dl Hct 42.8 (42.0-52.0) % MCV 85.8 (80.0-98.0) fL MCH 30.7 (27.0-33.0) pg MCHC 35.7 (31.0-36.0) g/dl RDW 13.2 (11.0-16.0) % Plt Count 339 (160-400) X10*3/uL MPV 9.7 (9.4-12.4) fL Immature Gran % (Auto) 0.6 H (0.0-0.4) % Neut % (Auto) 48.0 (45-73) % Lymph % (Auto) 38.7 (20-40) % Geary % (Auto) 8.1 (2-11) % Eos % (Auto) 4.1 H (0-4) % Baso % (Auto) 0.5 (0-2) % Lymph # (Auto) 3.0 (1.2-4.9) X10*3/uL Geary # (Auto) 0.6 (0.1-1.2) X10*3/uL Eos # (Auto) 0.3 (0.0-0.4) X10*3/uL Baso # (Auto) 0.0 (0.0-0.2) X10*3/uL Abs Immat Gran (auto) 0.05 H (0.00-0.03) X10*3/uL Absolute Neuts (auto) 3.8 (2.0-8.3) x10*3/uL Absolute Nucleated RBC 0.000 (0.0-0.012) X10*3/uL Nucleated RBC % (auto) 0.0 (0.0-0.2) /100WBC Sodium 133 L (135-145) mmol/L Potassium 4.1 (3.3-5.1) mmol/L Chloride 96 (96-108) mmol/L Carbon Dioxide 26 (22-29) mmol/L Anion Gap 15 (12-20) BUN 14 (9-16) mg/dL Creatinine 0.96 (0.5-1.4) mg/dL Estim Creat Clear Calc 105.2 Estimated GFR > 60 POC Glucose 417 H* 246 H (60-115) mg/dL Random Glucose 457 H* (60-115) mg/dL Calcium 9.7 D (8.4-10.2) mg/dL Magnesium 1.7 (1.6-2.6) mg/dL Total Bilirubin 0.5 (0.0-1.0) mg/dL Direct Bilirubin 0.1 (0.0-0.5) mg/dL AST 17 (5-37) U/L ALT 32 (0-40) U/L Alkaline Phosphatase 139 H (39-117) U/L Troponin I High Sens 3.7 (<3.5-35.0) ng/L Total Protein 8.1 H (6.5-8.0) g/dL Albumin 4.6 (3.5-5.0) g/dL Lipase 17 (8-78) U/L 09/14/24 Range/Units 12:36 WBC (4.8-10.8) X10*3/uL RBC (4.60-5.80) X10*6/uL Hgb (14.0-18.0) g/dl Hct (42.0-52.0) % MCV (80.0-98.0) fL MCH (27.0-33.0) pg MCHC (31.0-36.0) g/dl RDW (11.0-16.0) % Plt Count (160-400) X10*3/uL MPV (9.4-12.4) fL Immature Gran % (Auto) (0.0-0.4) % Neut % (Auto) (45-73) % Lymph % (Auto) (20-40) % Geary % (Auto) (2-11) % Eos % (Auto) (0-4) % Baso % (Auto) (0-2) % Lymph # (Auto) (1.2-4.9) X10*3/uL Geary # (Auto) (0.1-1.2) X10*3/uL Eos # (Auto) (0.0-0.4) X10*3/uL Baso # (Auto) (0.0-0.2) X10*3/uL Abs Immat Gran (auto) (0.00-0.03) X10*3/uL Absolute Neuts (auto) (2.0-8.3) x10*3/uL Absolute Nucleated RBC (0.0-0.012) X10*3/uL Nucleated RBC % (auto) (0.0-0.2) /100WBC Sodium (135-145) mmol/L Potassium (3.3-5.1) mmol/L Chloride (96-108) mmol/L Carbon Dioxide (22-29) mmol/L Anion Gap (12-20) BUN (9-16) mg/dL Creatinine (0.5-1.4) mg/dL Estim Creat Clear Calc Estimated GFR POC Glucose (60-115) mg/dL Random Glucose (60-115) mg/dL Calcium (8.4-10.2) mg/dL Magnesium (1.6-2.6) mg/dL Total Bilirubin (0.0-1.0) mg/dL Direct Bilirubin (0.0-0.5) mg/dL AST (5-37) U/L ALT (0-40) U/L Alkaline Phosphatase (39-117) U/L Troponin I High Sens 7.3 D (<3.5-35.0) ng/L Total Protein (6.5-8.0) g/dL Albumin (3.5-5.0) g/dL Lipase (8-78) U/L Independent Interpretation I performed an independent interpretation of an: EKG (Sinus heart rate is 86 GA QRS QTC normal no acute ST segment elevation noted) Discharge Plan Discharge Clinical Impression: Constipation, Acute hyperglycemia, Chest pain Patient Disposition: Home, Self-Care Instructions: Acute Abdominal Pain (DC), Chest Pain (ED), Diabetic Hyperglycemia (ED) Prescriptions: No Action omeprazole 40 mg capsule,delayed release(DR/EC) 40 mg PO DAILY Qty: 90 0RF (DME) blood-glucose meter [FreeStyle Lite Meter] Kit See Rx Instructions .ROUTE .MEDSUPPLY Qty: 1 0RF Rx Instructions: Check fasting blood sugar twice a day before meals (DME) lancets [FreeStyle Lancets] 28 gauge misc See Rx Instructions .ROUTE .MEDSUPPLY Qty: 100 6RF Rx Instructions: Check blood sugar as directed twice a day metformin 1,000 mg tablet 1,000 mg PO BID 90 Days Qty: 180 3RF Rx Instructions: Take 1 tablet twice a day with meals morning in evening (DME) FreeStyle Lite Strips Strip See Rx Instructions .ROUTE .MEDSUPPLY Qty: 100 6RF Rx Instructions: Check fasting blood sugartwice a day before meals and keep a record of readings fluticasone propionate [Allergy Relief (fluticasone)] 50 mcg/actuation spray,suspension 1 spray intranasal BID 10 Days Qty: 16 0RF Rx Instructions: administer into each nostril oxymetazoline [Afrin (oxymetazoline)] 0.05 % spray,non-aerosol 2 spray intranasal Q12H PRN (Reason: nasal congestion) 3 Days Qty: 15 0RF amoxicillin-pot clavulanate 875-125 mg tablet 1 tab PO BID 10 Days Qty: 20 0RF Referrals: Rishabh Guzman MD [Primary Care Provider, Internal Medicine] - 3 days Kenneth Manning MD [Physician, Cardiology] - 09/18/24 Diandra Gutierrez MD [Physician, Gastroenterology] - 1 week Print Language: [place]
[2024-09-14 09:38] LABS: Glucose, Whole Blood 417 mg/dL (60-115)
[2024-09-14 09:49] LABS: MANUAL DIFF FLAG NO
[2024-09-14 09:52] LABS: Hematocrit 42.8 % (42.0-52.0); Hemoglobin 15.3 g/dl (14.0-18.0); Imm Gran Abs Auto 0.05 X10*3/uL (0.00-0.03); Imm Gran Pct Auto 0.6 % (0.0-0.4); Lymphocytes Absolute Auto 3.0 X10*3/uL (1.2-4.9); Mean Corpuscular HGB Conc 35.7 g/dl (31.0-36.0); Mean Corpuscular Hemoglobin 30.7 pg (27.0-33.0); Mean Corpuscular Volume 85.8 fL (80.0-98.0); NRBC Abs Auto 0.000 X10*3/uL (0.0-0.012); NRBC Pct Auto 0.0 /100WBC (0.0-0.2); Platelet Count 339 X10*3/uL (160-400); Red Blood Count 4.99 X10*6/uL (4.60-5.80); White Blood Count 7.8 X10*3/uL (4.8-10.8)
[2024-09-14 10:09] LABS: Alanine Aminotransferase 32 U/L (0-40); Albumin Level 4.6 g/dL (3.5-5.0); Alkaline Phosphatase 139 U/L (39-117); Anion Gap 15 (12-20); Aspartate Amino Transferase 17 U/L (5-37); Blood Urea Nitrogen 14 mg/dL (9-16); Calcium 9.7 mg/dL (8.4-10.2); Carbon Dioxide 26 mmol/L (22-29); Chloride 96 mmol/L (96-108); Creatinine Clr Calc Pharmacy 105.2; Estimated Glomerular Filt Rate > 60; Lipase 17 U/L (8-78); Magnesium 1.7 mg/dL (1.6-2.6); Potassium 4.1 mmol/L (3.3-5.1); Sodium 133 mmol/L (135-145); Total Protein 8.1 g/dL (6.5-8.0)
[2024-09-14 10:14] LABS: Troponin-I High Sensitivity 3.7 ng/L (<3.5-35.0)
[2024-09-14 11:54] LABS: Glucose, Whole Blood 246 mg/dL (60-115)
[2024-09-14 12:50] VITALS: BP 136/80; PULSE 86; RESP 16; TEMP 36.4; O2SAT 98
[2024-09-14 13:06] LABS: Troponin-I High Sensitivity 7.3 ng/L (<3.5-35.0)
[2024-09-14 13:28] VITALS: BP 136/80; PULSE 86; RESP 16; TEMP 36.4; O2SAT 98
== END 2024-09-14 13:29 | disposition home or self-care (01) ==
PROVIDERS: Emergency Provider Emergency Medicine Emergency Medical Services; PCP Internal Medicine
DX: E11.65 Type 2 diabetes mellitus with hyperglycemia (principal); K59.00 Constipation, unspecified; R07.9 Chest pain, unspecified; K64.5 Perianal venous thrombosis; E78.5 Hyperlipidemia, unspecified; K44.9 Diaphragmatic hernia without obstruction or gangrene; K21.9 Gastro-esophageal reflux disease without esophagitis; E66.811 Obesity, class 1; Z68.30 Body mass index [BMI] 30.0-30.9, adult; Z87.891 Personal history of nicotine dependence; Z79.84 Long term (current) use of oral hypoglycemic drugs
CPT/HCPCS: 36415; 80053; 82248; 82947; 83690; 83735; 84484; 85025; 93005; 96361; 96374; 99284; 99285

== ENCOUNTER → 2024-09-14 09:11 | Outpatient (BNV) | payer OTHER, SELFPAY | PROVIDERS: Emergency Provider Emergency Medicine Emergency Medical Services; PCP Internal Medicine; Visit Provider Internal Medicine Cardiovascular Disease | DX: R94.31 Abnormal electrocardiogram [ECG] [EKG] (principal); R42 Dizziness and giddiness | CPT/HCPCS: 93010 ==